=== PATIENT | male | born 2000 | race African-American/Black ===

== ENCOUNTER 2020-01-20 18:24 | Emergency (ER) | payer OTHER, SELFPAY ==
[2020-01-20 18:44] VITALS: BP 114/71; PULSE 74; RESP 16; TEMP 37.2; O2SAT 98; BMI 27.0
--- NOTE | 2020-01-20 23:30 | ED_ITS ---
HPI - General Adult General Chief complaint: General Medical Stated complaint: cough Time Seen by Provider: 01/20/20 18:56 Source: patient Mode of arrival: ambulatory Limitations: no limitations History of Present Illness HPI narrative: 19-year-old male presents with his entire family for COVID-19 testing for a cough. Treatments prior to arrival: none Related Data Allergies Allergy/AdvReac Type Severity Reaction Status Date / Time No Known Allergies Allergy Verified 01/20/20 18:46 [No Known Allergies*] Review of Systems Review of Systems: Constitutional: No Fever, No Chills ENT/Mouth: No Ear Pain, No Hoarseness, No sore throat Eyes: No Eye Pain, No Swelling, No Redness, No Foreign Body Cardiovascular: Positive Chest Pain, No SOB Respiratory: Positive Cough, No Dyspnea Gastrointestinal: No Nausea, No Vomiting, No Diarrhea, No abdominal Pain Genitourinary: No Dysuria, No Hematuria Musculoskeletal: No joint pain, No Myalgias, No Joint Swelling Skin: No Skin lacerations, No rash Neuro: No Weakness, No Numbness, No Paresthesias, No Loss of Consciousness, No Dizziness, No Headache Psych: No Anxiety/Panic, No Depression Heme/Lymph: no easy bruising, no Lymphadenopathy Endocrine: No Polyuria, No Polydipsia Yes all other systems are reviewed and are negative [facility] Past Medical History Medical History (Updated 01/20/20 @ 18:58 by Alyssa George NP) No known health problems Social History Social History Advance Directives: No Advance Directives Information Provided: No Physical Exam Vital Signs: Vital Signs: Last Vital Signs Temp 99.0 F 01/20/20 18:44 Pulse 74 01/20/20 18:44 Resp 16 01/20/20 18:44 BP 114/71 01/20/20 18:44 Pulse Ox 98 01/20/20 18:44 Body Mass Index 27.0 Appearance: Alert. Oriented X3. No acute distress. Eyes: Pupils equal, round and reactive to light. ENT: Pharynx normal. Neck: Normal inspection. Neck supple. CVS: Normal heart rate and rhythm. Pulses normal. Respiratory: No respiratory distress. Breath sounds normal. Abdomen: Soft and nontender. Skin: Skin warm and dry. Normal skin color. Normal skin turgor. Extremities: No lower extremity edema. Neuro: No motor deficit. No sensory deficit. Course Course Course Narrative: 19-year-old male presents with his entire family for COVID-19 because of a cough. Patient verbalized understanding of and agrees to plan of care discharge home. Verbalized understanding of state and Federal guidelines for social isolation regarding COVID-19. Medical Decision Making Differential Diagnosis Differential Diagnosis: URI, viral syndrome, COVID-19 Medical Records Medical records reviewed: Yes I reviewed the patient's medical records. Lab Data Lab results reviewed: Yes I reviewed the patient's lab results. Discharge Plan Discharge Clinical Impression: Viral infection, COVID-19 Upper respiratory infection Qualifiers: URI type: unspecified URI Qualified Code(s): J06.9 - Acute upper respiratory infection, unspecified Patient Disposition: Home, Self-Care Instructions: Viral Syndrome (ED), COVID-19 (Coronavirus Disease 2019) (ED) Additional Instructions: You were evaluated for symptoms consistent with COVID-19. Your COVID-19 test is pending. Please maintain social isolation guidelines for state and Federal regulations. It is your responsibility to maintain these guidelines. Please drink plenty of fluids, alternate Tylenol and Motrin. Thank you for choosing this emergency department for evaluation. Please follow-up with primary care physician as needed. Return to the emergency department for any new, concerning, or worsening symptoms. Interventions: ED Discharge Assessment Last Done: 01/20/20 19:25 Discharge Date/Time: 01/20/20 19:26
== END 2020-01-20 19:26 | disposition home or self-care (01) ==
PROVIDERS: Nurse Practitioner Family; Emergency Provider Internal Medicine; PCP Physician Assistant
DX: J06.9 Acute upper respiratory infection, unspecified (principal); Z20.828 Contact with and (suspected) exposure to other viral communicable diseases; B34.9 Viral infection, unspecified
CPT/HCPCS: 99283; U0003

== ENCOUNTER 2022-05-20 12:07 | Outpatient (REF) | payer OTHER, SELFPAY ==
[2022-05-20 12:25] LABS: MANUAL DIFF FLAG NO
[2022-05-20 13:52] LABS: Basophils Percent Auto 0.8 % (0-2); Eosinophils Absolute Auto 0.3 X10*3/uL (0.0-0.4); Eosinophils Percent Auto 4.9 % (0-4); Hematocrit 43.2 % (42.0-52.0); Hemoglobin 14.3 g/dl (14.0-18.0); Imm Gran Abs Auto 0.01 X10*3/uL (0.00-0.03); Imm Gran Pct Auto 0.2 % (0.0-0.4); Lymphocytes Absolute Auto 2.4 X10*3/uL (1.2-4.9); Lymphocytes Percent Auto 44.2 % (20-40); Mean Corpuscular HGB Conc 33.1 g/dl (31.0-36.0); Mean Corpuscular Hemoglobin 28.8 pg (27.0-33.0); Mean Corpuscular Volume 87.1 fL (80.0-98.0); Monocytes Absolute Auto 0.5 X10*3/uL (0.1-1.2); Monocytes Percent Auto 9.6 % (2-11); Neutrophils Absolute Auto 2.2 x10*3/uL (2.0-8.3); Neutrophils Percent Auto 40.3 % (45-73); Platelet Count 369 X10*3/uL (160-400); Red Blood Count 4.96 X10*6/uL (4.60-5.80); Red Cell Distribution Width 12.3 % (11.0-16.0); White Blood Count 5.3 X10*3/uL (4.8-10.8)
[2022-05-20 14:29] LABS: Alanine Aminotransferase 26 U/L (0-40); Albumin Level 4.3 g/dL (3.5-5.0); Alkaline Phosphatase 88 U/L (39-117); Anion Gap 10 (12-20); Aspartate Amino Transferase 28 U/L (5-37); Bilirubin Total 0.6 mg/dL (0.0-1.0); Blood Urea Nitrogen 14 mg/dL (9-16); Calcium 9.8 mg/dL (8.4-10.2); Carbon Dioxide 27 mmol/L (22-29); Chloride 108 mmol/L (96-108); Estimated Glomerular Filt Rate 59; Glucose Random 77 mg/dL (60-115); Magnesium 2.1 mg/dL (1.6-2.6); Potassium 4.2 mmol/L (3.3-5.1); Sodium 141 mmol/L (135-145); Total Protein 6.9 g/dL (6.5-8.0)
[2022-05-20 15:00] LABS: Folate 8.1 ng/mL (> or = 4.0); TSH reflex Free T4 2.25 uIU/mL (0.32-4.0); Vitamin B12 420 pg/mL (200-900); Vitamin D 25-OH Total 10.1 ng/mL (>30)
== END 2022-05-20 12:08 | disposition home or self-care (01) ==
LOC: HO.LAB 12:07
PROVIDERS: PCP Nurse Practitioner Family; Visit Provider Nurse Practitioner Family
DX: Z00.00 Encounter for general adult medical examination without abnormal findings (principal); M62.838 Other muscle spasm
CPT/HCPCS: 36415; 80053; 82306; 82607; 82746; 83735; 84443; 85025

== ENCOUNTER 2022-06-30 15:38 | Emergency (ER) | payer OTHER, SELFPAY ==
[2022-06-30 15:58] VITALS: BP 108/57; PULSE 78; RESP 18; TEMP 36.2; O2SAT 97; BMI 35.4
--- NOTE | 2022-06-30 15:59 | ED.BACK ---
HPI - Back Pain/Injury General Chief Complaint: Back Pain/Injury Stated Complaint: left lower back pain Time Seen by Provider: 06/30/22 18:16 History of Present Illness HPI Narrative: patient woke today with back pain and muscle spasm in his lower back with no acute injury, he has had minor pain in his back before but today it is worse, it does not radiate there is no numbness weakness or tingling there is no changes to bowel or bladder no incontinence no dysuria no fever no IV drug use Related Data Previous Rx's Medication Instructions Recorded melatonin 5 mg tablet 5 mg PO BEDTIME PRN sleep #30 tabs 11/25/21 lisdexamfetamine 50 mg capsule 50 mg PO QAM #30 caps 05/20/22 (Vyvanse) cholecalciferol (vitamin D3) 50 50 mcg PO DAILY #90 tabs 06/02/22 mcg (2,000 unit) tablet acetaminophen 500 mg tablet 1,000 mg PO QID PRN pain #30 tabs 06/30/22 cyclobenzaprine 5 mg tablet 10 mg PO TID PRN muscle spasm #14 06/30/22 tabs ibuprofen 600 mg tablet 600 mg PO Q6H PRN pain #20 tabs 06/30/22 lidocaine 4 % topical patch 1 patch topical BID PRN pain #30 ea 06/30/22 (AsperFlex (lidocaine)) Allergies Allergy/AdvReac Type Severity Reaction Status Date / Time No Known Allergies Allergy Verified 05/20/22 11:45 [No Known Allergies*] [facility] Past Medical History Source: nursing notes reviewed Medical History Attention deficit hyperactivity disorder (ADHD), combined type COVID-19 vaccine administered No known health problems Surgical History No pertinent past surgical history Family History Family History Mother No problems noted. Father Substance use disorder Other Mental health disorder Social History Social History Household Members: Family Housing: House Alcohol intake: never Patient Tobacco Use Status: Never used Tobacco e-Cigarette/Vaping Use: Never Used Second Hand Smoke Exposure: No Advance Directives: No Advance Directives Information Provided: No service: No Current occupational status: student Cognitive needs: No Hearing needs: No Vision needs: No Physical Exam Vital Signs: Vital Signs: Last Vital Signs Temp 97.1 F 06/30/22 15:58 Pulse 78 06/30/22 15:58 Resp 18 06/30/22 15:58 BP 108/57 L 06/30/22 15:58 Pulse Ox 97 06/30/22 15:58 O2 Del Method Room Air 06/30/22 15:58 BMI result Body Mass Index 35.4 General appearance no acute distress Head is normocephalic atraumatic Neck is supple Respiratory no distress Abdomen soft nontender The back had lower lumbar paraspinal soft tissue tenderness no midline tenderness, pain is reproduced with movement, skin of the back was normal Extremities full range of motion x4 Neuro gait and balance are normal, motor is 5/5 x4 and sensation in extremities intact and symmetrical Course Course Course Narrative: This is a rapid medical exam. Deferred additional HPI, ROS, PE to primary provider. 22 yo male with history of autism, ADHD, anxiety, depression here with complaints of back pain since last evening intermittent for months. Supposed to get physical therapy and PCP aware per patient. Taking motrin for continued symptoms. VSS Patient with reproducible musculoskeletal back pain without neurologic deficit no changes to bowel or bladder is treated with analgesics and advised to follow with his doctor and ambulated easily from the emergency department Medications Administered Discontinued Medications Generic Name Dose Route Start Last Admin Trade Name Cezarq PRN Reason Stop Dose Admin Acetaminophen 975 mg 06/30/22 18:20 06/30/22 18:27 Acetaminophen 325 Mg Tablet PO 06/30/22 18:21 975 mg ONCE ONE Administration Ketorolac Tromethamine 30 mg 06/30/22 18:20 06/30/22 18:26 Ketorolac Tromethamine 30 Mg/Ml Vial IM 06/30/22 18:21 30 mg ONCE ONE Administration Lidocaine 1 patch 06/30/22 18:20 06/30/22 18:27 Lidocaine 4 % Patch Adh..Patch TRANSDERMA 06/30/22 18:21 1 patch ONCE ONE Administration Protocol Discharge Plan Discharge Clinical Impression: Back pain Patient Disposition: Home, Self-Care Additional Instructions: most back pain like yours gets better on its own in a reasonable time frame Follow with primary doctor for further evaluation if needed Return any time for weakness incontinence fever severe pain any worse condition or any concerns Prescriptions: New acetaminophen 500 mg tablet 1,000 mg PO QID PRN (Reason: pain) Qty: 30 0RF lidocaine [AsperFlex (lidocaine)] 4 % adhesive patch,medicated 1 patch topical BID PRN (Reason: pain) Qty: 30 0RF ibuprofen 600 mg tablet 600 mg PO Q6H PRN (Reason: pain) Qty: 20 0RF cyclobenzaprine 5 mg tablet 10 mg PO TID PRN (Reason: muscle spasm) Qty: 14 0RF No Action melatonin 5 mg tablet 5 mg PO BEDTIME PRN (Reason: sleep) Qty: 30 2RF cholecalciferol (vitamin D3) 50 mcg (2,000 unit) tablet 50 mcg PO DAILY Qty: 90 0RF Vyvanse 50 mg capsule 50 mg PO QAM Qty: 30 0RF Stand Alone Forms: Work/School Release Interventions: ED Discharge Assessment Last Done: 06/30/22 18:57 Discharge Date/Time: 06/30/22 18:58
[2022-06-30] MEDS: Ketorolac Tromethamine 30 MG/ML VIAL IM (18:26)
[2022-06-30] MEDS: Acetaminophen 325 MG TABLET 975 MG PO (18:27)
[2022-06-30] MEDS: Lidocaine 4 % Patch ADH..PATCH 1 PATCH TRANSDERMA (18:27)
== END 2022-06-30 18:58 | disposition home or self-care (01) ==
PROVIDERS: Emergency Provider Emergency Medicine Emergency Medical Services; PCP Nurse Practitioner Family
DX: M54.50 Low back pain, unspecified (principal); Z79.899 Other long term (current) drug therapy
CPT/HCPCS: 96372; 99283; 99284; J1885

== ENCOUNTER 2022-08-24 09:33 | Outpatient (AMB) | payer OTHER, SELFPAY ==
--- NOTE | 2022-08-24 09:37 | A.OFFPC_ITS ---
Vital Signs 08/24/22 09:38 Height 6 ft 4 in Weight 285 lb BMI 34.7 BP 128/78 Blood Pressure Location Lt brachial Position Sitting Pulse 82 Pulse Source Pulse Oximeter Pulse Oximetry (%) 98 Oxygen Delivery Method Room Air Intake Visit Reasons: f/u ADHD Allergies No Known Allergies [No Known Allergies*] Allergy (Verified 08/24/22 09:52) Medication List - Last Reconciled 08/24/22 by DAY Ley acetaminophen 1,000 mg (2 x 500 mg) PO QID PRN cholecalciferol (vitamin D3) 50 mcg PO DAILY cyclobenzaprine 10 mg (2 x 5 mg) PO TID PRN ibuprofen 600 mg PO Q6H PRN lidocaine 4% (AsperFlex (lidocaine)) 1 patch topical BID PRN lisdexamfetamine (Vyvanse) 50 mg PO QAM melatonin 5 mg PO BEDTIME PRN Tobacco use date assessed: 08/19/22 Dental Screening Dental Screen Date: 08/24/22 Did you have a dental visit in the last 12 months?: Yes Did you have a dental problem in the last 6 months where you did not have access to dental care?: No Was dental information given to patient?: Patient has dentist HPI f/u ADHD HPI Details Patient is a 22-year-old male who presents today to follow-up on ADHD.? Medical history significant for obesity, insomnia, depression, anxiety, and autistic disorder as well as ADHD.? Patient reports taking Vyvanse 50 mg in the morning when he goes to work, he does not take this medication when he home or on weekends.? Patient denies changes in appetite.? Mood is stable.? Also, patient reports intermittent low back pain with activity for about 4 month now, he denies injury, pain does not radiate. No changes in bowel/bladder, no numbness or tingling.? He takes ibuprofen or Tylenol as needed with some relief.? Patient has a referral for physical therapy, although he was not seen yet, will follow-up on this referral.? Patient denies shortness of breath or chest pain.? Patient is accompanied by his mother Lianne. ? ? [facility] Medical History Attention deficit hyperactivity disorder (ADHD), combined type COVID-19 vaccine administered No known health problems Surgical History No pertinent past surgical history Family History Mother No problems noted. Father Substance use disorder Other Mental health disorder Social History Household Members: Family Housing: House Alcohol intake: never Patient Tobacco Use Status: Never used Tobacco e-Cigarette/Vaping Use: Never Used Second Hand Smoke Exposure: No service: No Current occupational status: student Cognitive needs: No Hearing needs: No Vision needs: No Questionnaire PHQ-9 Over the last 2 weeks, how often have you been bothered by any of the following problems? 1. Little interest or pleasure in doing things: not at all 2. Feeling down, depressed, or hopeless: not at all 3. Trouble falling or staying asleep, or sleeping too much: not at all 4. Feeling tired or having little energy: not at all 5. Poor appetite or overeating: not at all 6. Feeling bad about yourself - or that you are a failure or have let yourself or your family down: not at all 7. Trouble concentrating on things, such as reading the newspaper or watching television: not at all 8. Moving or speaking so slowly that other people could have noticed. Or the opposite - being so fidgety or restless that you have been moving around a lot more than usual: not at all 9. Thoughts that you would be better off or of hurting yourself in some way: not at all Total score: 0 Depression Screening Interpretation: Negative 71211 - PHQ-9 Billing: Yes Source: Developed by Drs. Anthony Osuna, Penelope Edwards, John Aden and colleagues, with an educational gary from [employer]. Thrive Questionnaire Date Thrive assessed: 08/24/22 I am a: Patient What is your living situation today?: I have a steady place to live Within the past 12 months, did the food you bought not last and you didn't have the money to get more?: Never true Within the past 12 months, did you worry whether your food would run out before you got money to buy more?: Never true Do you have trouble paying for medicines?: No Do you have trouble getting transportation to medical appointments?: No Do you have trouble paying your heating and electricity bill?: No Do you have trouble taking care of your child, family member or friend?: No Do you have trouble with day-to-day activities such as bathing, preparing meals, shopping, managing finances, etc.?: No Are you currently unemployed and looking for a job?: No Are you interested in more education?: No Currently or been in a relationship where the following occur: no concerns reported AUDIT C Alcohol Use Questionnaire (AUDIT-C) 1. How often do you have a drink containing alcohol?: Never Total Score: 0 Score Reviewed/Action Taken: No MIR-7 AMB Questionnaire MIR-7 Date MIR - 7 assessed: 05/20/22 Source: Developed by Drs. Anthony Osuna, Penelope Edwards, John Aden and colleagues, with an educational gary from [employer]. Review of Systems Const Denies body aches, Denies chills, Denies fever(s) and Denies headache(s) Eyes Denies change in vision ENT Denies dizziness, Denies otalgia, Denies headache(s), Denies nasal discharge, Denies sinus pain and Denies sore throat Card Denies chest pain, Denies edema, Denies lightheadedness and Denies dyspnea Resp Denies cough and Denies dyspnea GI Denies constipation, Denies diarrhea, Denies nausea and Denies vomiting Denies dysuria Musc Reports as per HPI, Denies myalgias, Denies arthralgias, Denies joint swelling, Denies numbness and Denies tingling Skin/Breast Denies lesions and Denies rash Neuro Denies dizziness, Denies headache(s), Denies numbness and Denies tingling Physical exam (Primary Care) Vital Signs: Last Vital Signs Pulse 82 08/24/22 09:38 BP 128/78 08/24/22 09:38 Pulse Ox 98 08/24/22 09:38 Oxygen Delivery Method Room Air 08/24/22 09:38 BMI result Body Mass Index 34.7 Tobacco/Smoking Status: Tobacco use Status Tobacco use date assessed 08/19/22 08/24/22 09:37 Patient Tobacco Use Status Never used Tobacco 08/24/22 09:37 e-Cigarette/Vaping Use Never Used 08/24/22 09:37 PHQ-9: PHQ-9 Score PHQ-9: Total score 0 08/24/22 09:42 Depression Screening Interpretation: Negative Thrive Assessment: Date of Thrive Assessment Date Thrive assessed 08/24/22 08/24/22 09:42 Currently or been in a relationship where the following occur: no concerns reported Const General: cooperative and no acute distress Orientation/consciousness: patient oriented x3 HENMT Head: Yes normocephalic and Yes atraumatic Face and sinus: Yes sinuses nontender Mouth: oropharynx normal and moist mucous membranes Throat: Yes posterior oropharynx normal Eyes General: appearance normal, both eyes and all related structures Pupils: Equal, round and reactive pupils present EOM: EOMs intact bilaterally Neck Neck: Yes normal visual inspection, Yes full ROM and Yes no lymphadenopathy Thyroid: Thyroid normal Resp Effort & Inspection: normal respiratory effort and able to speak in complete sentences Auscultation: clear to auscultation bilaterally, no crackles, no rales, no rhonchi and no wheezes Cardio Rate: regular rate Rhythm: regular rhythm Heart sounds: S1 normal heart sound present, S2 normal heart sound present and no murmurs GI Palpation (GI): Soft to palpation, not firm, nontender, no guarding, not rigid and no hepatosplenomegaly Auscultation: normal bowel sounds Back/Spine/Pelvis Thoracic/Lumbar Spine: thoraco-lumbar ROM normal, No paraspinal muscle tenderness, No thoracic spinal tenderness and lumbar spinal tenderness (Mild) Skin General skin exam: no rashes or lesions noted Neuro General: patient oriented x3 Cranial nerves: Yes Equal, round and reactive pupils present Gait exam (Neuro): Normal gait present Extrem General: Yes full ROM and No edema Assessment and Plan Assessment & Plan (1) Insomnia: Code(s): G47.00 - Insomnia, unspecified Plan: Reinforced sleep hygiene Melatonin 5 mg at bedtime p.r.n. (2) Autistic disorder: Code(s): F84.0 - Autistic disorder Plan: Patient has high functioning autistic disorder (3) Attention deficit hyperactivity disorder (ADHD), combined type: Code(s): F90.2 - Attention-deficit hyperactivity disorder, combined type Plan: Vyvanse 50 mg every morning-educated about possible adverse reactions and when to notify provider Patient reports that he takes this medication only when he is at work, he does not take this medication when he is home or on weekends (4) Obesity (BMI 30-39.9): Code(s): E66.9 - Obesity, unspecified Plan: Healthy food choices and exercise as tolerated (5) Low back pain: Code(s): M54.50 - Low back pain, unspecified Plan: Suspect musculoskeletal in origin. Patient can continue [id number] Tylenol 1000 mg every 4 hours as needed and cyclobenzaprine t.i.d. p.r.n.. Encouraged heat/cold packs p.r.n.. Will follow-up on physical therapy referral. Signs and symptoms reviewed when to notify provider or go to the emergency department. Patient agreed with the plan. Plan Keep appointment with PCP as scheduled or follow-up sooner as needed Medications: Refilled lisdexamfetamine (Vyvanse) 50 mg PO QAM 30 caps 0RF F90.2 - Attention-deficit hyperactivity disorder, combined type Coding Level of Care Code Est Pt Level 4 (41982) Diagnoses Insomnia G47.00 Autistic disorder F84.0 Attention deficit hyperactivity disorder (ADHD), combined type F90.2 Obesity (BMI 30-39.9) E66.9 Low back pain M54.50
[2022-08-24 09:38] VITALS: BP 128/78; PULSE 82; O2SAT 98; BMI 34.7
== END 2022-08-24 10:07 | disposition home or self-care (01) ==
PROVIDERS: PCP Nurse Practitioner Family; Visit Provider Nurse Practitioner Family
DX: F90.2 Attention-deficit hyperactivity disorder, combined type (principal); F84.0 Autistic disorder; E66.9 Obesity, unspecified; Z68.34 Body mass index [BMI] 34.0-34.9, adult; G47.00 Insomnia, unspecified; M54.50 Low back pain, unspecified
CPT/HCPCS: 99214

== ENCOUNTER 2022-11-04 16:25 | Outpatient (AMB) | payer OTHER, SELFPAY ==
[2022-11-04 16:27] VITALS: BP 112/80; PULSE 74; O2SAT 97; BMI 35.5
--- NOTE | 2022-11-04 16:27 | A.OFFPC_ITS ---
Vital Signs 11/04/22 16:27 Height 6 ft 4 in Weight 292 lb BMI 35.5 BP 112/80 Blood Pressure Location Lt brachial Position Sitting Pulse 74 Pulse Source Pulse Oximeter Temp Source Skin Pulse Oximetry (%) 97 Oxygen Delivery Method Room Air Intake Visit Reasons: PE Intake Note: Patient is here today for a physical. 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 Allergies No Known Allergies [No Known Allergies*] Allergy (Verified 11/04/22 16:37) Medication List - Last Reconciled 11/04/22 by DAY Ley acetaminophen 1,000 mg (2 x 500 mg) PO QID PRN cholecalciferol (vitamin D3) 50 mcg PO DAILY ibuprofen 600 mg PO Q6H PRN lidocaine 4% (AsperFlex (lidocaine)) 1 patch topical BID PRN lisdexamfetamine (Vyvanse) 50 mg PO QAM melatonin 5 mg PO BEDTIME PRN Tobacco use date assessed: 11/04/22 Dental Screening Dental Screen Date: 11/04/22 Did you have a dental visit in the last 12 months?: Yes Did you have a dental problem in the last 6 months where you did not have access to dental care?: No Was dental information given to patient?: Patient has dentist HPI PE HPI Details Patient is a 22-year-old male who presents today for physical exam.? Medical history significant for obesity, insomnia, depression, anxiety, low back pain - has a referral for physical therapy, although he was not seen yet, will follow-up on this referral, and autistic disorder as well as ADHD.? Patient reports taking Vyvanse 50 mg in the morning when he goes to work, he does not take this medication when he home or on weekends.? Patient denies changes in appetite.? Mood is stable. Patient .? Patient denies shortness of breath or chest pain.? Patient reports right elbow pain with range of motion for the past couple months, he reports repetitive movements at work. Patient is accompanied by his mother Lianne. Patient was encouraged to complete his blood work. ? ? [facility], LAT[facility] Medical History COVID-19 vaccine administered Attention deficit hyperactivity disorder (ADHD), combined type No known health problems Surgical History No pertinent past surgical history Family History Mother No problems noted. Father Substance use disorder Other Mental health disorder Social History Household Members: Family Housing: House Alcohol intake: never Patient Tobacco Use Status: Never used Tobacco e-Cigarette/Vaping Use: Never Used Second Hand Smoke Exposure: No service: No Current occupational status: student Cognitive needs: No Hearing needs: No Vision needs: No Questionnaire PHQ-9 Over the last 2 weeks, how often have you been bothered by any of the following problems? 1. Little interest or pleasure in doing things: not at all 2. Feeling down, depressed, or hopeless: not at all 3. Trouble falling or staying asleep, or sleeping too much: not at all 4. Feeling tired or having little energy: not at all 5. Poor appetite or overeating: not at all 6. Feeling bad about yourself - or that you are a failure or have let yourself or your family down: not at all 7. Trouble concentrating on things, such as reading the newspaper or watching television: not at all 8. Moving or speaking so slowly that other people could have noticed. Or the opposite - being so fidgety or restless that you have been moving around a lot more than usual: not at all 9. Thoughts that you would be better off or of hurting yourself in some way: not at all Total score: 0 Depression Screening Interpretation: Negative 30926 - PHQ-9 Billing: Yes Source: Developed by Drs. Anthony Osuna, Penelope Edwards, John Aden and colleagues, with an educational gary from [employer]. Thrive Questionnaire Date Thrive assessed: 08/24/22 AUDIT C Alcohol Use Questionnaire (AUDIT-C) 1. How often do you have a drink containing alcohol?: Never Total Score: 0 Score Reviewed/Action Taken: No MIR-7 AMB Questionnaire MIR-7 Date MIR - 7 assessed: 11/04/22 Feeling nervous, anxious, or on edge: 0 = Not at all Not being able to stop or control worryin = Not at all Worrying too much about different things: 0 = Not at all Trouble relaxin = Not at all Being so restless that it is hard to sit still: 0 = Not at all Becoming easily annoyed or irritable: 0 = Not at all Feeling afraid as if something awful might happen: 0 = Not at all Total MIR-7 score (0-4 normal; 5-9 mild; 10-14 moderate; 15-21 severe): 0 Source: Developed by Drs. Anthony Osuna, Penelope Edwards, John Aden and colleagues, with an educational gary from [employer]. MIR-7 Assessment Billing MIR-7 Assessment Tool: MIR-7 Assessment 11458 Review of Systems Const Denies body aches, Denies chills, Denies fever(s) and Denies headache(s) Eyes Denies change in vision ENT Denies dizziness, Denies otalgia, Denies headache(s), Denies nasal discharge, Denies sinus pain and Denies sore throat Card Denies chest pain, Denies edema, Denies lightheadedness and Denies dyspnea Resp Denies cough and Denies dyspnea GI Denies constipation, Denies diarrhea, Denies nausea and Denies vomiting Denies dysuria Musc Reports as per HPI, Denies myalgias, Reports arthralgias, Denies joint swelling, Denies numbness and Denies tingling Skin/Breast Denies lesions and Denies rash Neuro Denies dizziness, Denies headache(s), Denies numbness and Denies tingling Physical exam (Primary Care) Vital Signs: Last Vital Signs Pulse 74 11/04/22 16:27 BP 112/80 11/04/22 16:27 Pulse Ox 97 11/04/22 16:27 Oxygen Delivery Method Room Air 11/04/22 16:27 BMI result Body Mass Index 35.5 Tobacco/Smoking Status: Tobacco use Status Tobacco use date assessed 11/04/22 11/04/22 16:34 Patient Tobacco Use Status Never used Tobacco 11/04/22 16:34 e-Cigarette/Vaping Use Never Used 11/04/22 16:34 PHQ-9: PHQ-9 Score PHQ-9: Total score 0 11/04/22 16:49 Depression Screening Interpretation: Negative Thrive Assessment: Date of Thrive Assessment Date Thrive assessed 08/24/22 11/04/22 16:34 Const General: cooperative and no acute distress Orientation/consciousness: patient oriented x3 HENMT Head: Yes normocephalic and Yes atraumatic Ears: TM's normal bilaterally Face and sinus: Yes sinuses nontender Mouth: oropharynx normal and moist mucous membranes Throat: Yes posterior oropharynx normal Eyes General: appearance normal, both eyes and all related structures Pupils: Equal, round and reactive pupils present EOM: EOMs intact bilaterally Neck Neck: Yes normal visual inspection, Yes full ROM and Yes no lymphadenopathy Thyroid: Thyroid normal Resp Effort & Inspection: normal respiratory effort and able to speak in complete sentences Auscultation: clear to auscultation bilaterally, no crackles, no rales, no rhonchi and no wheezes Cardio Rate: regular rate Rhythm: regular rhythm Heart sounds: S1 normal heart sound present, S2 normal heart sound present and no murmurs GI Palpation (GI): Soft to palpation, not firm, nontender, no guarding, not rigid and no hepatosplenomegaly Auscultation: normal bowel sounds Back/Spine/Pelvis Thoracic/Lumbar Spine: thoraco-lumbar ROM normal, No paraspinal muscle tenderness, No thoracic spinal tenderness and lumbar spinal tenderness (Mild) Skin General skin exam: no rashes or lesions noted Neuro General: patient oriented x3 Cranial nerves: Yes Equal, round and reactive pupils present Gait exam (Neuro): Normal gait present Extrem General: Yes full ROM and No edema Right upper extremity: elbow/forearm Details: normal to inspection and abnormal ROM (Mild pain with range of motion); no tenderness, no swelling, no unusual warmth and no crepitus Immunizations Boostrix Tdap 2.5 Lf unit-8 mcg-5 Lf/0.5 mL intramuscular syringe Performing Provider: DAY Ley Performing Location: [facility] Administered by: LAKISHA Colon on 11/04/22 16:50 Dose Route Admin Location Dispensed Lot Number Expiration Date NDC Title Insurance Examiner 0.5 mL IM Left Deltoid 0.5 mL [id number] 01/11/25 [id number] VIS Given Date VIS Provided VIS Publication Date 11/04/22 Single Vaccine 20 Eligibility Eligibility Date Funding Source Not [facility] Eligible 11/04/22 Private Assessment and Plan Assessment & Plan (1) Insomnia: Code(s): G47.00 - Insomnia, unspecified Plan: Reinforced sleep hygiene Melatonin 5 mg at bedtime p.r.n. (2) Autistic disorder: Code(s): F84.0 - Autistic disorder Plan: Patient has high functioning autistic disorder (3) Attention deficit hyperactivity disorder (ADHD), combined type: Code(s): F90.2 - Attention-deficit hyperactivity disorder, combined type Plan: Vyvanse 50 mg every morning-educated about possible adverse reactions and when to notify provider Patient reports that he takes this medication only when he is at work, he does not take this medication when he is home or on weekends (4) Obesity (BMI 30-39.9): Code(s): E66.9 - Obesity, unspecified Plan: Healthy food choices and exercise as tolerated (5) Low back pain: Code(s): M54.50 - Low back pain, unspecified Plan: Suspect musculoskeletal in origin. Patient can continue pqvw-voj-gadyeps Tylenol 1000 mg every 6 hours as needed. Start cyclobenzaprine 5 mg b.i.d. p.r.n.-educated about drowsiness. Encouraged heat/cold packs p.r.n.. Will follow-up on physical therapy referral. Signs and symptoms reviewed when to notify provider or go to the emergency department. Patient agreed with the plan. (6) Right elbow pain: Code(s): M25.521 - Pain in right elbow Plan: Will refer to OT Same as above (7) Adult general medical exam: Code(s): Z00.00 - Encounter for general adult medical examination without abnormal findings Orders: Orders TDaP Immunization 11/04/22 Z23 - Encounter for immunization OT Evaluation and Treatment 11/04/22 M25.521 - Pain in right elbow Medications: New 2 cyclobenzaprine 5 mg PO BID PRN 14 tabs 0RF muscle spasm M54.50 - Low back pain, unspecified Changed From acetaminophen 1,000 mg (2 x 500 mg) PO QID PRN 30 tabs 0RF pain M25.521 - Pain in right elbow, M54.50 - Low back pain, unspecified To acetaminophen 1,000 mg (2 x 500 mg) PO Q6H PRN 60 tabs 0RF pain M25.521 - Pain in right elbow, M54.50 - Low back pain, unspecified Coding Level of Care Code Est Pt Prev Care [id number]) Diagnoses Insomnia G47.00 Autistic disorder F84.0 Attention deficit hyperactivity disorder (ADHD), combined type F90.2 Obesity (BMI 30-39.9) E66.9 Low back pain M54.50 Right elbow pain M25.521 Adult general medical exam Z00.00 Additional Codes MIR-7 Assessment Billing - MIR-7 Assessment Tool: MIR-7 Assessment [id number] ([id number])
== END 2022-11-04 16:58 | disposition home or self-care (01) ==
PROVIDERS: Visit Provider Nurse Practitioner Family
DX: Z23 Encounter for immunization (principal)
CPT/HCPCS: 90471; 90715; 99395

== ENCOUNTER 2023-09-23 18:03 | Emergency (ER) | payer OTHER, SELFPAY ==
--- NOTE | ~2023-09-23 | XR_ITS ---
EXAMINATION: XR ELBOW, RIGHT XR HAND WRIST RIGHT CLINICAL INFORMATION: Pain. Injury. COMPARISON: None available. TECHNIQUE: AP, lateral, and oblique views of the right elbow. 4 views of the right hand/wrist FINDINGS: Right elbow: Right elbow joint effusion. Nondisplaced intra-articular fracture is evident at the radial head. No additional fractures. Bone mineralization is normal. Right hand: No fracture or malalignment. Bone mineralization is normal. Soft tissues are unremarkable. Joint spaces are well-preserved. No erosions. XR/XR elbow RT min 3V IMPRESSION: 1. Nondisplaced intra-articular radial head fracture with associated elbow joint effusion. 2. No acute osseous findings at the right hand.
--- NOTE | ~2023-09-23 | XR_ITS ---
EXAMINATION: XR SHOULDER, RIGHT XR SCAPULA, LEFT CLINICAL INFORMATION: Fall. Pain. COMPARISON: None TECHNIQUE: AP external rotation, Grashey, scapular Y, and axillary views of the right shoulder. 2 views of the left scapula. FINDINGS: Right shoulder: The bones and soft tissues are normal. No fracture. Glenohumeral and acromioclavicular alignment is anatomic with normal joint space. No abnormal soft tissue calcifications. Left scapula: No fracture or malalignment. Osseous structures are unremarkable. Acromioclavicular and glenohumeral joints are unremarkable. XR/XR shoulder RT min 2V IMPRESSION: No acute osseous abnormalities in the right shoulder and left scapula.
--- NOTE | ~2023-09-23 | XR_ITS ---
EXAMINATION: XR KNEE, LEFT CLINICAL INFORMATION: Injury. COMPARISON: None available. TECHNIQUE: AP and lateral views of the left knee. FINDINGS: Small joint effusion. Alignment is anatomic. Joint spaces are maintained. No abnormal soft tissue calcification. XR/XR knee LT 2V IMPRESSION: Small joint effusion. No acute fracture or dislocation.
--- NOTE | ~2023-09-23 | XR_ITS ---
EXAMINATION: XR SHOULDER, RIGHT XR SCAPULA, LEFT CLINICAL INFORMATION: Fall. Pain. COMPARISON: None TECHNIQUE: AP external rotation, Grashey, scapular Y, and axillary views of the right shoulder. 2 views of the left scapula. FINDINGS: Right shoulder: The bones and soft tissues are normal. No fracture. Glenohumeral and acromioclavicular alignment is anatomic with normal joint space. No abnormal soft tissue calcifications. Left scapula: No fracture or malalignment. Osseous structures are unremarkable. Acromioclavicular and glenohumeral joints are unremarkable. XR/XR scapula LT IMPRESSION: No acute osseous abnormalities in the right shoulder and left scapula.
--- NOTE | ~2023-09-23 | XR_ITS ---
EXAMINATION: XR ELBOW, RIGHT XR HAND WRIST RIGHT CLINICAL INFORMATION: Pain. Injury. COMPARISON: None available. TECHNIQUE: AP, lateral, and oblique views of the right elbow. 4 views of the right hand/wrist FINDINGS: Right elbow: Right elbow joint effusion. Nondisplaced intra-articular fracture is evident at the radial head. No additional fractures. Bone mineralization is normal. Right hand: No fracture or malalignment. Bone mineralization is normal. Soft tissues are unremarkable. Joint spaces are well-preserved. No erosions. XR/XR hand wrist RT IMPRESSION: 1. Nondisplaced intra-articular radial head fracture with associated elbow joint effusion. 2. No acute osseous findings at the right hand.
[2023-09-23 18:24] VITALS: BP 129/78; PULSE 86; RESP 18; TEMP 36.4; O2SAT 98; BMI 39.5
--- NOTE | 2023-09-23 18:49 | ED_ITS ---
HPI - General Adult General Chief complaint: Fall Stated complaint: right arm mult. abrasions, swelling Time Seen by Provider: 09/23/23 18:57 Source: patient Mode of arrival: ambulatory Limitations: no limitations History of Present Illness ED Provider: Celi Clarek APRN HPI narrative: 23-year-old male previously healthy, right-hand dominant here with complaints after fall off of a skateboard. Patient reports he caught himself with his right upper extremity and then rolled onto the left side. Denies hitting his head or loss of consciousness. He reports pain in his right wrist, right hand, right shoulder, left shoulder, right elbow, left knee. Tetanus is up-to-date. No associated weakness, numbness or tingling of the extremities. No chest pain, abdominal pain, back pain, neck pain or headache. Related Data Previous Rx's ?Medication ?Instructions ?Recorded melatonin 5 mg tablet 5 mg PO BEDTIME PRN sleep #30 tabs 11/25/21 ibuprofen 600 mg tablet 600 mg PO Q6H PRN pain #20 tabs 06/30/22 lidocaine 4 % topical patch 1 patch topical BID PRN pain #30 ea 06/30/22 (AsperFlex (lidocaine)) acetaminophen 500 mg tablet 1,000 mg (2 x 500 mg) PO Q6H PRN 11/04/22 pain #60 tabs cyclobenzaprine 5 mg tablet 5 mg PO BID PRN muscle spasm #14 11/04/22 tabs cholecalciferol (vitamin D3) 50 50 mcg PO DAILY #90 tabs 12/01/22 mcg (2,000 unit) tablet lisdexamfetamine 50 mg capsule 50 mg PO QAM #30 caps 01/18/23 (Vyvanse) Allergies Allergy/AdvReac Type Severity Reaction Status Date / Time No Known Allergies Allergy Verified 09/23/23 18:33 [No Known Allergies*] Review of Systems 2 Review of Systems: Yes all other systems are reviewed and are negative Constitutional: Constitutional: Reports no additional constitutional complaints, Denies body ache(s), Denies chills, Denies fever(s), Denies headache(s) and Denies weakness Eyes: Eyes: Reports no additional eye complaints and Denies change in vision ENT: Reports system reviewed and no additional complaints, except as documented, Denies dizziness, Denies headache(s), Denies nasal congestion, Denies nasal discharge and Denies neck pain Cardiovascular: Cardiovascular: Reports no additional cardiovascular complaints, Denies chest pain, Denies leg edema and Denies dyspnea Respiratory: Respiratory: Reports no additional respiratory complaints, Denies cough and Denies dyspnea Gastrointestinal: Gastrointestinal: Reports no additional gastrointestinal complaints, Denies abdominal pain, Denies diarrhea, Denies nausea and Denies vomiting Genitourinary: Genitourinary: Denies urinary incontinence Musculoskeletal: Musculoskeletal: Reports no additional musculoskeletal complaints, Denies back pain, Reports arthralgias, Reports joint swelling, Denies neck pain, Denies numbness and Denies tingling Integumentary/Breasts: Skin/Breast: Reports system reviewed and no additional complaints, except as docu, Denies rash and Reports wounds Neurologic: Reports system reviewed and no additional complaints, except as documented, Denies Abnormal speech present, Denies dizziness, Denies headache(s), Denies numbness, Denies tingling and Denies weakness PMFSH Past Medical History Attestation statement: The following information was validated with the patient. Source: old records reviewed and nursing notes reviewed Medical History COVID-19 vaccine administered Attention deficit hyperactivity disorder (ADHD), combined type No known health problems Surgical History No pertinent past surgical history Family History Family History Mother No problems noted. Father Substance use disorder Other Mental health disorder Social History Social History Household Members: Family Housing: House Alcohol intake: never Patient Tobacco Use Status: Never used Tobacco e-Cigarette/Vaping Use: Never Used Second Hand Smoke Exposure: No Advance Directives: No Advance Directives Information Provided: No Do you have a plan to hurt others: No Plan service: No Current occupational status: student Cognitive needs: No Hearing needs: No Vision needs: No Physical Exam ED Vital Signs: Vital Signs - 24 hr 09/23/23 18:24 09/23/23 20:51 Temperature 97.5 F 98 F Pulse Rate 86 84 Respiratory Rate 18 20 Blood Pressure 129/78 130/82 Pulse Oximetry 98 98 Oxygen Delivery Method Room Air Room Air BMI result Body Mass Index 39.5 Const General: cooperative, healthy appearing, comfortable and no acute distress Orientation/consciousness: patient oriented x3 Limitations: no limitations HENMT Head: Yes normal to inspection, No Rosales's sign and No raccoon eyes Ears: hearing grossly normal bilaterally and TM's normal bilaterally General nose exam: Normal external nose present Face and sinus: Yes normal facial exam Mouth: Normal oral and palatal mucosa present Throat: Yes posterior oropharynx normal Eyes General: appearance normal, both eyes and all related structures Pupils: Equal, round and reactive pupils present Neck Other: No cervical midline tenderness, step offs or deformities Neck: Yes normal visual inspection, Yes full ROM and Yes no lymphadenopathy Chest Chest palpation & inspection: normal inspection of the chest Resp Effort & Inspection: normal respiratory effort Auscultation: clear to auscultation bilaterally Cardio Rate: regular rate Rhythm: regular rhythm Peripheral pulses: Peripheral pulses 2+ throughout GI Inspection: Yes normal to inspection Palpation (GI): Soft to palpation and nontender Auscultation: normal bowel sounds Back/Spine/Pelvis Thoracic/Lumbar Spine: thoracic and lumbar spine normal to inspection Skin General skin exam: no rashes or lesions noted Neuro General: patient oriented x3, moves all extremities, no focal motor deficits and normal sensation to monofilament Cranial nerves: Yes CN's II-XII intact bilaterally, Yes Equal, round and reactive pupils present, Yes Bilaterally intact EOM present, Yes Nystagmus not present and Yes Normal facial strength present Cognition (Neuro): normal cognition Speech: No Abnormal speech present Gait exam (Neuro): Normal gait present Motor exam (neuro): 5/5 motor strength present throughout Sensory Exam: Normal double simultaneous stimulation for sensation Extrem Other: FROM of R shoulder, right elbow, left shoulder, left knee Limited ROM of right wrist/right thenar/base of 1st digit. General: Yes normal to inspection Shoulder/upper arm images: 2 1. + abrasion with mild tenderness on palpation. FROM 2. + abrasion with mild tenderness on palpation. FROM of joint. Elbow/forearm/wrist images: 2 1. +abrasion Hand/finger images: 2 1. +abrasion/swelling 2. +skin avulsion, abrasions Knee images: 2 1. +abrasion, mild TTP. FROM Course Course Course Narrative: This is a rapid medical exam. Deferred additional HPI, ROS, PE to primary provider. Fell of skateboard, with right wrist/elbow pain/abrasions, left knee/left shoulder abrasions. No head strike or LOC. Will obtain x-rays iCndy ALEXANDER Reevaluation(s) Reevaluation #1: 2100-Sign out to Asif VILLEGAS pending imaging results. Reevaluation #2: 10:00 p.m. x-ray results returned and reviewed with the patient and his mother. Positive right radial head fracture. Patient will be placed in sling. Of note, mom reports that patient has had elevated LFTs in the past and therefore was advised not take acetaminophen. He will continue ibuprofen as directed. All abrasions have been cleaned and bandaged. Reviewed all discharge instructions. No further questions at this time. Medications Administered Discontinued Medications Generic Name Dose Route Start Last Admin Trade Name Freq PRN Reason Stop Dose Admin Bacitracin 5 appl 09/23/23 20:37 09/23/23 21:43 Bacitracin Oint 0.9 Gm Packet TOPICAL 09/23/23 20:38 5 appl ONCE ONE Administration Protocol Medical Decision Making Medical Decision Making MDM Narrative: 23-year-old male previously healthy, right-hand dominant here with complaints after fall off of a skateboard.? Patient reports he caught himself with his right upper extremity and then rolled onto the left side.? Denies hitting his head or loss of consciousness.? He reports pain in his right wrist, right hand, right shoulder, left shoulder, right elbow, left knee.? Tetanus is up-to-date.? No associated weakness, numbness or tingling of the extremities.? No chest pain, abdominal pain, back pain, neck pain or headache. Multple abrasions FROM of R shoulder, right elbow, left shoulder, left knee Limited ROM of right wrist/right thenar/base of 1st digit. Will check x-rays Differential Diagnosis Differential Diagnoses: The differential diagnosis associated with the presentation includes abrasions, fracture, sprain, strain, contusion Low suspicion for complex fx, dislocation or vascular injury Admission/Observation Consideration of admission/observation: Escalation of care including admission/observation considered Low suspicion for complex fx, dislocation or vascular injury requiring advanced imaging, urgent ortho consult and or admission Independent Interpretation I performed an independent interpretation of an: Plain X-Ray Radiology Impression Discussion of test interpretation with radiology: I have reviewed the radiologist's reading. Radiologist Impression: [address] [address] XRay Report Signed Patient: Leonard Hdz MR#: [id number] : 2000 Acct:[id number] Age/Sex: 23 / M ADM Date: 09/23/23 Loc: HO.ED Attending Dr: Ordering Physician: Kolby Yañez MD Date of Service: 09/23/23 Procedure(s): XR elbow RT min 3V Accession Number(s): [id number] cc: [facility]; Kolby Yañez MD~ EXAMINATION: XR ELBOW, RIGHT XR HAND WRIST RIGHT CLINICAL INFORMATION: Pain. Injury. COMPARISON: None available. TECHNIQUE: AP, lateral, and oblique views of the right elbow. 4 views of the right hand/wrist FINDINGS: Right elbow: Right elbow joint effusion. Nondisplaced intra-articular fracture is evident at the radial head. No additional fractures. Bone mineralization is normal. Right hand: No fracture or malalignment. Bone mineralization is normal. Soft tissues are unremarkable. Joint spaces are well-preserved. No erosions. XR/XR elbow RT min 3V IMPRESSION: 1. Nondisplaced intra-articular radial head fracture with associated elbow joint effusion. 2. No acute osseous findings at the right hand. Dictated By: Andrew Polo MD Signed By: <Electronically signed by Andrew Polo MD in [place]> 09/23/232121 DD/ 39 TD/TT: Enterprise Solutions Architect: THUAN [address] [address] XRay Report Signed Patient: Leonard Hdz MR#: [id number] : 2000 Acct:[id number] Age/Sex: 23 / M ADM Date: 09/23/23 Loc: HO.ED Attending Dr: Ordering Physician: Kolby Yañez MD Date of Service: 09/23/23 Procedure(s): XR knee LT 2V Accession Number(s): [id number] cc: [facility]; Kolby Yañez MD~ EXAMINATION: XR KNEE, LEFT CLINICAL INFORMATION: Injury. COMPARISON: None available. TECHNIQUE: AP and lateral views of the left knee. FINDINGS: Small joint effusion. Alignment is anatomic. Joint spaces are maintained. No abnormal soft tissue calcification. XR/XR knee LT 2V IMPRESSION: Small joint effusion. No acute fracture or dislocation. Dictated By: Andrew Polo MD Signed By: <Electronically signed by Andrew Polo MD in [place]> 09/23/232119 DD/ 39 TD/TT: Enterprise Solutions Architect: THUAN [place] [address] XRay Report Signed Patient: Leonard Hdz MR#: [id number] : 2000 Acct:[id number] Age/Sex: 23 / M ADM Date: 09/23/23 Loc: .ED Attending Dr: Ordering Physician: Celi Horton NP Date of Service: 09/23/23 Procedure(s): XR shoulder RT min 2V Accession Number(s): [id number] cc: [facility]; Celi Horton HEALTH INFORMATION SPECIALIST~ EXAMINATION: XR SHOULDER, RIGHT XR SCAPULA, LEFT CLINICAL INFORMATION: Fall. Pain. COMPARISON: None TECHNIQUE: AP external rotation, Grashey, scapular Y, and axillary views of the right shoulder. 2 views of the left scapula. FINDINGS: Right shoulder: The bones and soft tissues are normal. No fracture. Glenohumeral and acromioclavicular alignment is anatomic with normal joint space. No abnormal soft tissue calcifications. Left scapula: No fracture or malalignment. Osseous structures are unremarkable. Acromioclavicular and glenohumeral joints are unremarkable. XR/XR shoulder RT min 2V IMPRESSION: No acute osseous abnormalities in the right shoulder and left scapula. Dictated By: Andrew Polo MD Signed By: <Electronically signed by Andrew Pool MD in [place]> 09/23/232118 DD/ 39 TD/TT: Enterprise [employer] Architect: THUAN Tests considered The following testing was considered but not selected: Low suspicion for complex fx, dislocation or vascular injury requiring advanced imaging, Prescription Management I considered prescription management with: Pain Medication Discharge Plan Discharge Clinical Impression: Abrasion of knee, left, Abrasion of left shoulder, Abrasion of right shoulder, Abrasion of forearm, right, Abrasion of hand, right Fracture of radial head, right, closed Qualifiers: Encounter type: initial encounter Fracture alignment: nondisplaced Qualified Code(s): S52.124A - Nondisplaced fracture of head of right radius, initial encounter for closed fracture Patient Disposition: Home, Self-Care Instructions: Elbow Fracture (ED), Abrasion (ED) Additional Instructions: Take Motrin or Tylenol for any pain that you have Apply ice to the affected areas Keep the abrasions clean and dry. Sling as directed. Follow-up with orthopedic referral, call Monday morning Expect to feel sore for the next few days Follow-up with your primary care doctor for any continued symptoms Monitor for signs of infection (redness, increased swelling, drainage, fever and return for these symptoms) Prescriptions: No Action melatonin 5 mg tablet 5 mg PO BEDTIME PRN (Reason: sleep) Qty: 30 2RF cholecalciferol (vitamin D3) 50 mcg (2,000 unit) tablet 50 mcg PO DAILY Qty: 90 0RF lisdexamfetamine [Vyvanse] 50 mg capsule 50 mg PO QAM Qty: 30 0RF lidocaine [AsperFlex (lidocaine)] 4 % adhesive patch,medicated 1 patch topical BID PRN (Reason: pain) Qty: 30 0RF ibuprofen 600 mg tablet 600 mg PO Q6H PRN (Reason: pain) Qty: 20 0RF cyclobenzaprine 5 mg tablet 5 mg PO BID PRN (Reason: muscle spasm) Qty: 14 0RF acetaminophen 500 mg tablet 1,000 mg PO Q6H PRN (Reason: pain) Qty: 60 0RF Referrals: Amilcar Verduzco MD [Physician] - 1 week (Closed, nondisplaced, Right radial head fx) [facility] [Primary Care Provider] - 1 week Print Language: Filipino
[2023-09-23 20:51] VITALS: BP 130/82; PULSE 84; RESP 20; TEMP 36.6; O2SAT 98
[2023-09-23] MEDS: Bacitracin Oint 0.9 GM PACKET 5 APPL TOPICAL (21:43)
[2023-09-23 22:20] VITALS: BP 130/71; PULSE 78; RESP 18; TEMP 36.6; O2SAT 98
[2023-09-23 22:45] VITALS: BP 130/71; PULSE 78; RESP 18; TEMP 36.6; O2SAT 98
== END 2023-09-23 22:46 | disposition home or self-care (01) ==
PROVIDERS: Emergency Provider Emergency Medicine
DX: S52.124A Nondisplaced fracture of head of right radius, initial encounter for closed fracture (principal); S80.212A Abrasion, left knee, initial encounter; S40.212A Abrasion of left shoulder, initial encounter; S40.211A Abrasion of right shoulder, initial encounter; S50.811A Abrasion of right forearm, initial encounter; S60.511A Abrasion of right hand, initial encounter; V00.131A Fall from skateboard, initial encounter; Y93.51 Activity, roller skating (inline) and skateboarding; Y92.9 Unspecified place or not applicable; Y99.9 Unspecified external cause status
CPT/HCPCS: 73010; 73030; 73080; 73110; 73130; 73560; 99283; 99284

== ENCOUNTER 2023-10-06 10:43 | Outpatient (AMB) | payer OTHER, SELFPAY ==
--- NOTE | 2023-10-06 10:44 | A.OFFVIS_ITS ---
Vital Signs 10/06/23 10:48 Height 6 ft 4 in Weight 324 lb BMI 39.4 Handedness Right Intake Visit Reasons: FC - left side fc Intake Note: Leonard is a 23 year old right hand dominant male who presents today with mom for a evaluation of his right side pain. He states that he fell off of a skateboard. Patient reports he caught himself with his right upper extremity and then rolled onto the left side. He mentions having pain in his right wrist, right hand, right shoulder, left shoulder, right elbow, left knee. Currently he is feeling better than before. He states that he still having pain in his wrist and elbow with movement. Allergies No Known Allergies [No Known Allergies*] Allergy (Verified 10/06/23 10:46) HPI HPI FC - left side fc: Details: 23-year-old right hand dominant male who presents in the office today for an evaluation of right upper extremity pain. The patient presented to the ED on 09/23/23 status post a fall off his skateboard causing him to and on his right upper extremity and roll to his left side. He reported pain in the right wrist, right hand, right shoulder, left shoulder, right elbow, and left knee. X-rays were obtained and his right upper extremity was placed into a sling. ? ? While in the office today, the patient reports he is currently feeling better. He does reports pain in the right wrist and elbow with ROM.? [facility] Medical History COVID-19 vaccine administered Attention deficit hyperactivity disorder (ADHD), combined type No known health problems Surgical History No pertinent past surgical history Family History Mother No problems noted. Father Substance use disorder Other Mental health disorder Social History Household Members: Family Housing: House Alcohol intake: never Patient Tobacco Use Status: Never used Tobacco e-Cigarette/Vaping Use: Never Used Second Hand Smoke Exposure: No service: No Current occupational status: student Cognitive needs: No Hearing needs: No Vision needs: No Review of Systems Const All systems reviewed & are unremarkable except as noted in HPI and below Physical Exam Vital Signs: BMI result Body Mass Index 39.4 Const General: cooperative and no acute distress Orientation/consciousness: patient oriented x3 Resp Effort & Inspection: normal respiratory effort and able to speak in complete sentences Cardio Peripheral pulses: Peripheral pulses 2+ throughout Skin General skin exam: no rashes or lesions noted Neuro General: patient oriented x3 Extrem Other: Right upper extremity: 10 degrees of full extension. Able to perform full flex ion, pronation, and supination with pain. Tenderness to palpation over the radial head at the fracture site. ? Office Procedures Fracture Care Fracture Billing Code: Fracture Billing Code Assessment & Plan Assessment & Plan (1) Fracture of radial head, right, closed: Code(s): S52.121A - Displaced fracture of head of right radius, initial encounter for closed fracture Category: Medical Qualifiers: Encounter type: initial encounter Fracture alignment: nondisplaced Qualified Code(s): S52.124A - Nondisplaced fracture of head of right radius, initial encounter for closed fracture Plan Mr. Hdz is a 23-year-old right hand dominant male who presents in the office today for an evaluation of right upper extremity pain. The patient presented to the ED on 09/23/23 status post a fall off his skateboard causing him to and on his right upper extremity and roll to his left side. He reported pain in the right wrist, right hand, right shoulder, left shoulder, right elbow, and left knee. X-rays were obtained and his right upper extremity was placed into a sling. ? ? While in the office today, the patient reports he is currently feeling better. He does reports pain in the right wrist and elbow with ROM.? ? The patient may wear the sling for comfort. I encouraged him to come out of the sling regularly to perform ROM exercises that were demonstrated in the office today. An order was made for the patient to attend physical therapy. Follow-up will be in four weeks with repeat x-rays or sooner if needed. ? ? X-rays of the right elbow, obtained on 09/23/23, revealed: ? 1. Nondisplaced intra-articular radial head fracture with associated elbow joint effusion.? 2. No acute osseous findings at the right hand.? ? Orders: Orders OT Evaluation and Treatment Today S52.121A - Displaced fracture of head of right radius, initial encounter for closed fracture Patient Instructions: Scribed by Padma Abdi medical chief technician, for Bisi Matias PA-C on 10/06/2023 at 10:52 am, EST.? Coding Level of Care Code New Pt Level 4 (60534) Complex EM visit Add On G2211 Diagnoses Fracture of radial head, right, closed S52.124A Encounter type: initial encounter Fracture alignment: nondisplaced CPT Codes Fracture Care - Fracture Billing Code: Fracture Billing Code ([id number])
[2023-10-06 10:48] VITALS: BMI 39.4
== END 2023-10-06 10:54 | disposition home or self-care (01) ==
PROVIDERS: Visit Provider Physician Assistant
DX: S52.124A Nondisplaced fracture of head of right radius, initial encounter for closed fracture (principal)
CPT/HCPCS: 99203; G2211

== ENCOUNTER → 2023-10-06 10:43 | Outpatient (BNVA) | payer OTHER, SELFPAY | PROVIDERS: Visit Provider Physician Assistant | DX: S52.124A Nondisplaced fracture of head of right radius, initial encounter for closed fracture (principal); V00.131A Fall from skateboard, initial encounter; Y93.I9 Activity, other involving external motion; Y92.830 Public park as the place of occurrence of the external cause; Y99.9 Unspecified external cause status | CPT/HCPCS: 99202 ==

== ENCOUNTER 2023-11-03 09:09 | Outpatient (REF) | payer OTHER, SELFPAY ==
--- NOTE | ~2023-11-03 | XR_ITS ---
EXAMINATION: XR ELBOW, RIGHT CLINICAL INFORMATION: M25.529 - Pain in unspecified elbow COMPARISON: None available. TECHNIQUE: AP, lateral, and oblique views of the right elbow. FINDINGS: Joint effusion has significantly improved. Redemonstration of subtle radial head intra-articular fracture without step-off or significant displacement. Fracture line is much less distinct, indicating healing. No change in alignment of the joint. Remainder of the bones, soft tissues of the left elbow appear normal. XR/XR elbow RT min 3V IMPRESSION: 1. Healing intra-articular radial head fracture without change in anatomic alignment. Much improved joint effusion. 2. No new findings or acute findings right elbow. Electronically signed by: Andrew Norris MD 01/12/2024 12:42 PM MARIALUISA MITCHELL
== END 2023-11-03 09:10 | disposition home or self-care (01) ==
LOC: HO.HOSX 09:09
PROVIDERS: PCP Physician Assistant; Visit Provider Physician Assistant
DX: M25.521 Pain in right elbow (principal); S52.124A Nondisplaced fracture of head of right radius, initial encounter for closed fracture
CPT/HCPCS: 73080; 99212

== ENCOUNTER → 2023-11-03 09:12 | Outpatient (BNV) | payer OTHER, SELFPAY | PROVIDERS: PCP Physician Assistant; Visit Provider Radiology Diagnostic Radiology | DX: S52.121D Displaced fracture of head of right radius, subsequent encounter for closed fracture with routine healing (principal); M25.521 Pain in right elbow | CPT/HCPCS: 73080 ==

== ENCOUNTER 2023-11-03 09:33 | Outpatient (AMB) | payer OTHER, SELFPAY ==
--- NOTE | 2023-11-03 09:36 | MHC.OFFVIS ---
Intake Visit Reasons: OV - right radial head fx, DOI 09/23/23 Intake Note: Leonard is a 23 year old right hand dominant male who presents today with mom for a follow up of his right radial head fx, DOI 09/23/23. He states je is doing better, however he tends to have some discomfort when moving his arm up and down. Patient brought to my attention that he had a water blister on the lateral side of his knee that popped. Allergies No Known Allergies [No Known Allergies*] Allergy (Verified 11/03/23 09:44) HPI HPI OV - right radial head fx, DOI 09/23/23: Details: 23-year-old right hand dominant male who presents in the office today for a follow-up of a right radial head fracture which occurred on 09/23/23. I last saw the patient on 10/06/23 when he was referred to physical therapy. He was encouraged to come out of the sling regularly to perform ROM exercises that were demonstrated in the office. While in the office today, the patient reports he is doing better; however, he experiences mild discomfort when he lifts or lowers his right upper extremity. [facility] Medical History COVID-19 vaccine administered Attention deficit hyperactivity disorder (ADHD), combined type No known health problems Surgical History No pertinent past surgical history Family History Mother No problems noted. Father Substance use disorder Other Mental health disorder Social History Household Members: Family Housing: House Alcohol intake: never Patient Tobacco Use Status: Never used Tobacco e-Cigarette/Vaping Use: Never Used Second Hand Smoke Exposure: No service: No Current occupational status: student Cognitive needs: No Hearing needs: No Vision needs: No Review of Systems Const All systems reviewed & are unremarkable except as noted in HPI and below Physical Exam Const General: cooperative, healthy appearing and no acute distress Resp Effort & Inspection: normal respiratory effort and able to speak in complete sentences Cardio Rate: regular rate Peripheral pulses: Peripheral pulses 2+ throughout GI Palpation (GI): Soft to palpation Skin Lesions: no lesions Rashes: no rashes Extrem Other: Right elbow: Normal to inspection. No ecchymosis, erythema, or edema. Patient is lacking about 10 degrees of full extension. Able to perform full flexion. Able to perform full pronation and supination. No tenderness over the fracture site at the head of the radius. NVI. Assessment & Plan Assessment & Plan (1) Fracture of radial head, right, closed: Code(s): S52.121A - Displaced fracture of head of right radius, initial encounter for closed fracture Category: Medical Qualifiers: Encounter type: initial encounter Fracture alignment: nondisplaced Qualified Code(s): S52.124A - Nondisplaced fracture of head of right radius, initial encounter for closed fracture Plan Mr. Hdz is a 23-year-old right hand dominant male who presents in the office today for a follow-up of a right radial head fracture which occurred on 09/23/23. I last saw the patient on 10/06/23 when he was referred to physical therapy. He was encouraged to come out of the sling regularly to perform ROM exercises that were demonstrated in the office. While in the office today, the patient reports he is doing better; however, he experiences mild discomfort when he lifts or lowers his right upper extremity. The patient will continue to attend the remaining session of physical therapy. Follow up will be PRN, or sooner if needed. X-rays of the right elbow which were obtained while in the office today and were reviewed by me, Bisi Matias PA-C, revealed routine healing of right radial head fracture. Orders: Orders XR elbow RT min 3V Today M25.529 - Pain in unspecified elbow Patient Instructions: Scribed by Varsha Mccann medical i d sales, for Bisi Matias PA-C on 11/03/23 at 9:50 am EST. Coding Level of Care Code Global (14647) Diagnoses Fracture of radial head, right, closed S52.124A Encounter type: initial encounter Fracture alignment: nondisplaced
== END 2023-11-03 09:52 | disposition home or self-care (01) ==
PROVIDERS: Visit Provider Physician Assistant
DX: S52.124A Nondisplaced fracture of head of right radius, initial encounter for closed fracture (principal)
CPT/HCPCS: 99213

== ENCOUNTER 2023-11-09 16:01 | Outpatient (AMB) | payer OTHER, SELFPAY ==
--- NOTE | 2023-11-09 16:11 | MHC.PC.OV ---
Vital Signs 11/09/23 16:14 Height 6 ft 4 in Weight 315 lb 4 oz BMI 38.4 BP 90/50 L Blood Pressure Location Lt brachial Position Sitting Pulse 72 Pulse Source Pulse Oximeter Pulse Oximetry (%) 97 Oxygen Delivery Method Room Air Intake Visit Reasons: PREET from [place]/Physical Exam Court Collections Officer Required: No Accompanied by: Mother Allergies No Known Allergies [No Known Allergies*] Allergy (Verified 11/09/23 16:22) Medication List - Last Reconciled 11/09/23 by Ochoa Walker PA-C ibuprofen 600 mg PO Q6H PRN lisdexamfetamine (Vyvanse) 50 mg PO QAM melatonin 5 mg PO BEDTIME PRN Tobacco use date assessed: 11/09/23 Dental Screening Dental Screen Date: 11/04/22 HPI PREET from [place]/Physical Exam HPI Details Patient is a 23-year-old male here today for new patient transfer care visit. Patient has a past medical history significant for obesity, ADHD and autistic spectrum disorder. Concern-> have noted dry skin in patches of hyperpigmented skin. He does admit to being a excessively sweaty person. He also reports over last several years having intermittent muscle cramping .. ADHD: Patient does take Vyvanse on an as needed basis. At this time he is not in school or working. 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 .. Insomnia: Does use melatonin before bed which helps with sleep. [facility] Medical History (Updated 11/14/23 @ 08:08 by Ochoa Walker PA-C) Anxiety Depression COVID-19 vaccine administered Attention deficit hyperactivity disorder (ADHD), combined type No known health problems Surgical History No pertinent past surgical history Family History Mother No problems noted. Father Substance use disorder Other Mental health disorder Social History (Updated 11/09/23 @ 16:26 by Ochoa Walker PA-C) Household Members: Family Housing: House Alcohol intake: never Patient Tobacco Use Status: Never used Tobacco e-Cigarette/Vaping Use: Never Used Second Hand Smoke Exposure: No service: No Current occupational status: unemployed Cognitive needs: No Hearing needs: No Vision needs: No Questionnaire Thrive Questionnaire Date Thrive assessed: 08/24/22 Are you currently unemployed and looking for a job?: I choose not to answer this question MIR-7 AMB Questionnaire MIR-7 Date MIR - 7 assessed: 11/04/22 Source: Developed by Drs. Anthony Osuna, Penelope Edwards, John Aden and colleagues, with an educational gary from [employer]. Review of Systems Const Denies body aches, Denies chills, Denies excessive sweating, Denies fatigue, Denies fever(s) and Denies headache(s) Eyes Denies blurry vision ENT Denies dysphagia, Denies vertigo, Denies dizziness, Denies headache(s), Denies hearing loss and Denies tinnitus Card Denies chest pain, Denies chest pain with activity, Denies syncope, Denies irregular heart rhythm and Denies dyspnea Resp Denies chest congestion, Denies cough, Denies hemoptysis, Denies dyspnea and Denies wheezing GI Denies abdominal pain, Denies melena, Denies hematochezia, Denies coffee ground emesis, Denies dysphagia, Denies diarrhea, Denies nausea and Denies vomiting Denies difficulty urinating, Denies dysuria, Denies urinary frequency, Denies urinary hesitancy and Denies urinary urgency Musc Denies arthralgias, Denies limited range of motion, Denies muscle cramps and Denies muscle weakness Skin/Breast Denies rash and Denies skin ulcer Neuro Denies Abnormal speech present, Denies confusion, Denies vertigo, Denies dizziness, Denies syncope, Denies headache(s), Denies memory loss and Denies seizure-like activity Psych Denies anxiety, Denies confusion, Denies depression, Denies memory loss, Denies panic attacks and Denies paranoia Endo Denies excessive sweating, Denies fatigue, Denies flushing, Denies polydipsia and Denies polyuria Aller/Immun Denies wheezing Physical exam (Primary Care) Vital Signs: Last Vital Signs Pulse 72 11/09/23 16:14 BP 90/50 L 11/09/23 16:14 Pulse Ox 97 11/09/23 16:14 Oxygen Delivery Method Room Air 11/09/23 16:14 BMI result Body Mass Index 38.4 Tobacco/Smoking Status: Tobacco use Status Tobacco use date assessed 11/09/23 11/09/23 16:20 Patient Tobacco Use Status Never used Tobacco 11/09/23 16:26 e-Cigarette/Vaping Use Never Used 11/09/23 16:26 Thrive Assessment: Date of Thrive Assessment Date Thrive assessed 08/24/22 11/09/23 16:20 Const General: cooperative, comfortable, no acute distress, alert and awake; No confusion Orientation/consciousness: oriented to person, oriented to place, patient oriented x3 and No confusion HENMT Head: Yes normocephalic Ears: external ears normal and TM's normal bilaterally Face and sinus: No sinus tenderness Mouth: Normal oral and palatal mucosa present and tongue normal Teeth and gingiva: dentition normal and gingiva normal Throat: Yes posterior oropharynx normal, Yes tonsils normal and Yes uvula midline Eyes Conjunctivae: conjunctivae normal Sclerae: sclerae normal Pupils: Equal, round and reactive pupils present EOM: EOMs intact bilaterally Direct Ophthalmoscopy: No no photophobia Neck Neck: Yes no lymphadenopathy, No tender and Yes no JVD Thyroid: Thyroid normal Carotids: no bruits Chest Chest palpation & inspection: no tenderness Resp Effort & Inspection: normal respiratory effort, no audible wheezes, not labored and no stridor Auscultation: no crackles, no rales, no rhonchi and no wheezes Cardio Jugular venous distension: no JVD Rate: regular rate, not bradycardic and not tachycardic Rhythm: regular rhythm Bruits: no carotid bruits Peripheral pulses: Peripheral pulses 2+ throughout GI Inspection: Yes normal to inspection, No abdominal wall ecchymosis and No visible herniation Palpation (GI): Soft to palpation, nontender, no guarding, not rigid and No hepatosplenomegaly present Auscultation: normoactive bowel sounds General: Yes no CVA tenderness Back/Spine/Pelvis Back: no CVA tenderness and No back tenderness Cervical Spine: cervical ROM normal Thoracic/Lumbar Spine: thoracic and lumbar spine normal to inspection, straight leg raise negative bilaterally, No thoraco-lumbar ROM limited and No lumbar spinal tenderness Skin Lesions: no lesions Rashes: no rashes Wounds: no wounds Neuro General: oriented to person, oriented to place, patient oriented x3, CN's II-XI intact bilaterally and No confusion Cranial nerves: Yes Equal, round and reactive pupils present and Yes Normal accommodation reflex present Cognition (Neuro): normal cognition Speech: No Abnormal speech present Gait exam (Neuro): Normal gait present Motor exam (neuro): 5/5 motor strength present throughout Extrem Right upper extremity: full ROM; no cyanosis Left upper extremity: full ROM; no cyanosis Right lower extremity: no edema Left lower extremity: no edema Psych Appearance: grossly normal Mental Status: mental status grossly normal Affect: normal affect Attitude: cooperative Thought process: Normal thought process present Coding Level of Care Code Est Pt Prev Care 18-39y(87519) Diagnoses Adult general medical exam Z00.00 Primary insomnia F51.01 Insomnia type: primary Autistic disorder F84.0 Attention deficit hyperactivity disorder (ADHD), combined type F90.2 Screening for diabetes mellitus (DM) Z13.1 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 Lives at home with mother. (4) Attention deficit hyperactivity disorder (ADHD), combined type: Code(s): F90.2 - Attention-deficit hyperactivity disorder, combined type Category: Medical Plan: Patient does use Vyvanse on an as needed basis for school. Has not been in school recently as his program was close down in video game design. 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 Does have tinea versicolor which is likely related to his hyperhidrosis. Orders: Orders PT Evaluation and Treatment 11/09/23 M54.50 - Low back pain, unspecified Erythrocyte Sedimentation Rate 11/09/23 M62.838 - Other muscle spasm Creatine Kinase Total 11/09/23 M62.838 - Other muscle spasm Vitamin D 25-OH Total 11/09/23 R79.89 - Other specified abnormal findings of blood chemistry Comprehensive [place]. Panel Fast 11/09/23 Z13.1 - Encounter for screening for diabetes mellitus Complete Blood Count no Diff 11/09/23 Z13.1 - Encounter for screening for diabetes mellitus Magnesium 11/09/23 M62.838 - Other muscle spasm Medications: New glycopyrrolate 1 mg PO BID-TID 90 tabs 0RF secretions 30 days L74.510 - Primary focal hyperhidrosis, axilla Changed From melatonin 5 mg PO BEDTIME PRN 30 tabs 2RF sleep G47.00 - Insomnia, unspecified To melatonin 5 mg PO BEDTIME 90 tabs 3RF sleep 90 days G47.00 - Insomnia, unspecified
[2023-11-09 16:14] VITALS: BP 90/50; PULSE 72; O2SAT 97; BMI 38.4
== END 2023-11-09 16:43 | disposition home or self-care (01) ==
PROVIDERS: PCP Physician Assistant; Visit Provider Physician Assistant
DX: Z00.00 Encounter for general adult medical examination without abnormal findings (principal); F51.01 Primary insomnia; F84.0 Autistic disorder; F90.2 Attention-deficit hyperactivity disorder, combined type; Z13.1 Encounter for screening for diabetes mellitus; L74.510 Primary focal hyperhidrosis, axilla

== ENCOUNTER → 2023-11-09 16:01 | Outpatient (BNVA) | payer OTHER, SELFPAY | PROVIDERS: PCP Physician Assistant; Visit Provider Physician Assistant | DX: Z00.01 Encounter for general adult medical examination with abnormal findings (principal); F51.01 Primary insomnia; F84.0 Autistic disorder; F90.2 Attention-deficit hyperactivity disorder, combined type; L74.510 Primary focal hyperhidrosis, axilla | CPT/HCPCS: 99395 ==

== ENCOUNTER 2023-11-17 13:30 | Outpatient (RCR) | payer OTHER, SELFPAY ==
--- NOTE | 2024-01-11 10:54 | MHC.OT.DC ---
[address] [phone] F: [phone] Occupational Therapy Discharge Note Patient Name: Leonard Hdz Provider: Bisi Matias Diagnosis: (R)distal radial head fx Date of Surgery: Date of Evaluation: 10/17/23 Date of Discharge: Treatments to Date: 4 Cancellations to Date: No Shows to Date: Discharge Status: Visit Non-compliance Discharge Summary: Patient did not return to therapy Electronically Signed By: BROOK Tillman/Amadou, CLT Reviewed/agree with student documentation: Therapist: Please Sign and return to therapist, thank you for your referral.
== END 2024-05-23 11:13 | disposition home or self-care (01) ==
LOC: HO.OT 13:30
PROVIDERS: PCP Physician Assistant; Visit Provider Physician Assistant
DX: S52.121D Displaced fracture of head of right radius, subsequent encounter for closed fracture with routine healing (principal)
CPT/HCPCS: 97110; 97140; 97165

== ENCOUNTER 2023-11-24 12:18 | Outpatient (REF) | payer OTHER, SELFPAY ==
[2023-11-24 13:27] LABS: Hematocrit 45.7 % (42.0-52.0); Hemoglobin 14.8 g/dl (14.0-18.0); Mean Corpuscular HGB Conc 32.4 g/dl (31.0-36.0); Mean Corpuscular Hemoglobin 28.6 pg (27.0-33.0); Mean Corpuscular Volume 88.4 fL (80.0-98.0); Mean Platelet Volume 8.7 fL (9.4-12.4); Platelet Count 348 X10*3/uL (160-400); Red Blood Count 5.17 X10*6/uL (4.60-5.80); Red Cell Distribution Width 12.1 % (11.0-16.0); White Blood Count 5.4 X10*3/uL (4.8-10.8)
[2023-11-24 14:05] LABS: Erythrocyte Sedimentation Rate 5 MM/HR (0-15)
[2023-11-24 14:21] LABS: Alanine Aminotransferase 39 U/L (0-40); Albumin Level 4.5 g/dL (3.5-5.0); Alkaline Phosphatase 78 U/L (39-117); Anion Gap 11 (12-20); Aspartate Amino Transferase 28 U/L (5-37); Bilirubin Total 0.6 mg/dL (0.0-1.0); Blood Urea Nitrogen 9 mg/dL (9-16); Calcium 10.1 mg/dL (8.4-10.2); Carbon Dioxide 29 mmol/L (22-29); Chloride 104 mmol/L (96-108); Estimated Glomerular Filt Rate > 60; Glucose Fasting 87 mg/dL (60-99); Potassium 3.8 mmol/L (3.3-5.1); Sodium 140 mmol/L (135-145); Total Protein 7.7 g/dL (6.5-8.0)
[2023-11-24 14:37] LABS: Vitamin D 25-OH Total 19.3 ng/mL (>30)
== END 2023-11-24 12:19 | disposition home or self-care (01) ==
LOC: HO.LAB 12:18
PROVIDERS: PCP Physician Assistant; Visit Provider Physician Assistant
DX: Z13.1 Encounter for screening for diabetes mellitus (principal); M62.838 Other muscle spasm; R79.89 Other specified abnormal findings of blood chemistry
CPT/HCPCS: 36415; 80053; 82306; 82550; 83735; 85027; 85652

== ENCOUNTER 2024-02-21 09:51 | Outpatient (AMB) | payer OTHER, SELFPAY ==
--- NOTE | 2024-02-21 10:11 | MHC.OFFVIS ---
Vital Signs 02/21/24 10:14 Height 6 ft 4 in Weight 322 lb 15.635 oz BMI 39.3 BP 112/72 Blood Pressure Location Rt brachial Position Sitting Respiration 18 Pulse 84 Pulse Source Pulse Oximeter Pulse Oximetry (%) 98 Oxygen Delivery Method Room Air Intake Visit Reasons: Abnormal Lab Intake Note: Patient presents for abnormal lab. Allergies No Known Allergies [No Known Allergies*] Allergy (Verified 02/21/24 10:14) Medication List - Last Reconciled 02/21/24 by Ana Delgadillo MD glycopyrrolate 1 mg PO BID-TID 30 days ibuprofen 600 mg PO Q6H PRN lisdexamfetamine (Vyvanse) 50 mg PO QAM melatonin 5 mg PO BEDTIME 90 days HPI Comments Details: Patient is a 24-year-old male who presents for evaluation of elevated CK. Started having muscle pains when he was around 12 years old. Initially when he sought care he was told this was likely growing pains (had a recent growth spurt). Since then he continued to have growth spurts and these occasional muscle spasms Muscle spasms involving all over the body - jaw, hands, legs, feet, thighs, back - Mostly in the legs They would not occur every day but would occur sometimes several times over several days. No specific time of day they occur but he notes they would occur more during the day than at night. This associated with muscle twitching No associated numbness of tingling No muscle weakness No problems walking up and down stairs No problems raising hand over head No rashes No significant family history for muscle dystrophy [facility] Medical History (Updated 02/21/24 @ 10:54 by Ana Delgadillo MD) Vitamin D deficiency Anxiety Depression COVID-19 vaccine administered Attention deficit hyperactivity disorder (ADHD), combined type No known health problems Surgical History No pertinent past surgical history Family History Mother No problems noted. Father Substance use disorder Other Mental health disorder Social History Household Members: Family Housing: House Alcohol intake: never Patient Tobacco Use Status: Never used Tobacco e-Cigarette/Vaping Use: Never Used Second Hand Smoke Exposure: No service: No Current occupational status: unemployed Cognitive needs: No Hearing needs: No Vision needs: No Review of Systems Const Details: Review of Systems Constitutional: Denies fever, chills, weight loss ENT: Denies vision changes, eye pain or eye redness, dental caries, dry mouth GI: Denies nausea, vomiting, diarrhea, abdominal pain, change in BM Pulm: Denies SOB, DASILVA, hemoptysis, wheezing Cards: Denies chest pain, palpitations Skin: Denies Raynaud's, rash, nail changes, photosensitivity, ELEVATOR CONSTRUCTOR: Denies headaches, weakness, paresthesias, recurrent falls MSK: as per HPI All other systems reviewed and are unremarkable except noted above Physical Exam Vital Signs: Last Vital Signs Pulse 84 02/21/24 10:14 Resp 18 02/21/24 10:14 BP 112/72 02/21/24 10:14 Pulse Ox 98 02/21/24 10:14 Oxygen Delivery Method Room Air 02/21/24 10:14 BMI result Body Mass Index 39.3 Vital signs reviewed Physical Examination CONSTITUITIONAL Patient alert and cooperative. Well appearing and in no apparent painful distress HEENT Conjunctiva and sclera clear. ?Pupils equal round and reactive to light. ?No lymphadenopathy. ? CHEST/RESPIRATORY SYSTEM Normal respiratory effort and able to speak in complete sentences. ?Clear to auscultation bilaterally. ?No crackles, rales, rhonchi, wheezes heard. CARDIAC SYSTEM Regular rate and rhythm. ?S1 and S2 heard no murmurs. ?Radial pulses intact bilaterally MSK Hands: ?Good commercial painter strength bilaterally. No deformities noted. ?No synovitis noted to the MCPs, PIPs or DIPs. ?No tenderness to palpation of these joints. Wrists: ?Full range of motion at the wrists without pain. ?No tenderness to palpation or synovitis noted to the wrists. Elbows: Full range of motion without pain. No tenderness, weakness, swelling, increased warmth or erythema. Shoulders: Full range of motion without pain. No tenderness, weakness, swelling, increased warmth or erythema. Knees: ?Full range of motion. ?No tenderness, swelling, increased warmth or erythema.?No effusion or crepitations Right Left Shoulder abduction 5 5 Shoulder adduction 5 5 Elbow flexion 5 5 Elbow extension 5 5 Graduate Teacher Education Strength 5 5 Hip Flexion 5 5 SKIN Skin intact without rashes. Results Reviewed Results Reviewed: Laboratory Tests 11/24/23 12:31 WBC 5.4 RBC 5.17 Hgb 14.8 Hct 45.7 Plt Count 348 ESR 5 Sodium 140 Potassium 3.8 Chloride 104 Carbon Dioxide 29 BUN 9 Creatinine 1.27 AST 28 ALT 39 Alkaline Phosphatase 78 Total Creatine Kinase 672 H Total Protein 7.7 Albumin 4.5 25-OH Vitamin D Total 19.3 L Assessment & Plan Assessment & Plan (1) Elevated creatine kinase: Code(s): R74.8 - Abnormal levels of other serum enzymes Category: Medical Plan: #Elevated CK Patient is a 24-year-old male without any significant medical history who presents with a longstanding history of recurrent muscle cramps affecting a variety of limbs. Differentials for elevated CK include musculoskeletal injuries, infections, medications, inflammatory myopathies, metabolic myopathies. At this time very low suspicion for an underlying autoimmune myositis or myopathy. Given the young age that this all occurred he may have an underlying metabolic myopathy. We will send [facility] genetic testing looking for enzyme deficiencies. Patient without any significant neuropathic symptoms. We will hold off on EMG for now. Other differentials of recurrent muscle spasms include electrolyte imbalance, dehydration, overuse, thyroid disorders, neuropathy, multiple sclerosis, ALS. Encouraged hydration and we will check TSH. Low suspicion for multiple sclerosis and ALS at this time given there are no other neurologic symptoms. Plan - [facility] metabolic myopathy panel - Repeat CK - Check TSH, Aldolase - Check MSA extended panel - Encourage magnesium supplementation - Vitamin D 5000U daily - RTC prn Plan I spent 60 minutes reviewing the record and labs, taking a history, examining the patient, discussing the treatment plan and documenting in the medical record Orders: Orders MSA Panel Extended Today R74.8 - Abnormal levels of other serum enzymes Other Ref Test - Misc Today M62.838 - Other muscle spasm, R74.8 - Abnormal levels of other serum enzymes Vitamin D 25-OH (D2 and D3) Today E55.9 - Vitamin D deficiency, unspecified, R74.8 - Abnormal levels of other serum enzymes Thyroglobulin Antibodies Today E55.9 - Vitamin D deficiency, unspecified, R74.8 - Abnormal levels of other serum enzymes Thyroid Peroxidase Antibodies Today E55.9 - Vitamin D deficiency, unspecified, R74.8 - Abnormal levels of other serum enzymes Thyroid Stimulating Hormone Today E55.9 - Vitamin D deficiency, unspecified, R74.8 - Abnormal levels of other serum enzymes Free T4 (Free Thyroxine) Today E55.9 - Vitamin D deficiency, unspecified, R74.8 - Abnormal levels of other serum enzymes CK, Total+Isoenzymes, Serum Today R74.8 - Abnormal levels of other serum enzymes Aldolase Today R74.8 - Abnormal levels of other serum enzymes Comprehensive Met. Panel Today R74.8 - Abnormal levels of other serum enzymes Medications: New cholecalciferol (vitamin D3) 50 mcg PO DAILY 90 caps 3RF E55.9 - Vitamin D deficiency, unspecified Discontinued glycopyrrolate Discontinued Reason: Patient no longer taking 1 mg PO BID-TID 30 days 90 tabs 0RF secretions L74.510 - Primary focal hyperhidrosis, axilla Coding Level of Care Code New Pt Level 5 (59521) Diagnoses Elevated creatine kinase R74.8
[2024-02-21 10:14] VITALS: BP 112/72; PULSE 84; RESP 18; O2SAT 98; BMI 39.3
== END 2024-02-21 11:09 | disposition home or self-care (01) ==
PROVIDERS: PCP Physician Assistant; Visit Provider Student in an Organized Health Care Education/Training Program
DX: R74.8 Abnormal levels of other serum enzymes (principal)
CPT/HCPCS: 99205

== ENCOUNTER → 2024-02-21 09:51 | Outpatient (BNVA) | payer OTHER, SELFPAY | PROVIDERS: PCP Physician Assistant; Visit Provider Student in an Organized Health Care Education/Training Program | DX: R74.8 Abnormal levels of other serum enzymes (principal); M62.838 Other muscle spasm; E55.9 Vitamin D deficiency, unspecified; L74.510 Primary focal hyperhidrosis, axilla | CPT/HCPCS: 99202 ==

== ENCOUNTER 2024-10-14 10:54 | Outpatient (AMB) | payer OTHER, SELFPAY ==
--- NOTE | 2024-10-14 11:11 | A.OFFPC_ITS ---
Vital Signs 10/14/24 11:17 Height 6 ft 4 in Weight 322 lb BMI 39.2 BP 110/60 Blood Pressure Location Lt brachial Position Sitting Pulse 79 Pulse Source Pulse Oximeter Temp 97.1 F Temp Source Temporal Artery Scan Pulse Oximetry (%) 96 Oxygen Delivery Method Room Air Intake Visit Reasons: follow up Intake Note: Patient is here to follow up on ADHD, Low back pain. Child Abuse Worker Required: No Family Practice Nurse Practitioner: Present Accompanied by: Mother Allergies No Known Allergies (No Known Allergies*) Allergy (Verified 10/14/24 11:42) Medication List - Last Reconciled 10/14/24 by Ochoa Walker PA-C ibuprofen 600 mg PO Q6H PRN lisdexamfetamine (Vyvanse) 50 mg PO QAM melatonin 5 mg PO BEDTIME 90 days Tobacco use date assessed: 10/14/24 Dental Screening Dental Screen Date: 10/14/24 Did you have a dental visit in the last 12 months?: No Did you have a dental problem in the last 6 months where you did not have access to dental care?: No Was dental information given to patient?: No HPI follow up HPI Details Patient is a 24-year-old male here today for a follow-up visit Patient has a past medical history significant for obesity, ADHD and autistic spectrum disorder. .. Elevated creatinine kinase: He does have a chronic history of muscle spasms particularly in his legs. Has tried anti-inflammatory he is though have not been effective. Has followed up with Rheumatology due to his elevated creatinine kinase. He was supposed to have blood work evaluation though has not done at since his rheumatology evaluation. He promises to do his blood work soon. Hyperpigmentation: Continues to note dry skin in patches of hyperpigmented skin mostly over his neck and torso. He has tried Selsun blue which helped a bit though still continues to have very evident hyperpigmentation. Patient interested in seeing a basket hand weaver for evaluation and treatment. Also considering antifungal oral medications though will check labs to evaluate liver enzymes. .. ADHD: Patient does take Vyvanse on an as needed basis. At this time working part-time at a local [employer] . .. Insomnia: Does use melatonin before bed which helps with sleep. [facility] Medical History Vitamin D deficiency Anxiety Depression COVID-19 vaccine administered Attention deficit hyperactivity disorder (ADHD), combined type No known health problems Surgical History No pertinent past surgical history Family History Mother No problems noted. Father Substance use disorder Other Mental health disorder Social History Household Members: Family Housing: House Alcohol intake: never Patient Tobacco Use Status: Never used Tobacco e-Cigarette/Vaping Use: Never Used Second Hand Smoke Exposure: No service: No Current occupational status: unemployed Cognitive needs: No Hearing needs: No Vision needs: No Questionnaire PHQ-9 Over the last 2 weeks, how often have you been bothered by any of the following problems? 1. Little interest or pleasure in doing things: several days 2. Feeling down, depressed, or hopeless: not at all 3. Trouble falling or staying asleep, or sleeping too much: several days 4. Feeling tired or having little energy: several days 5. Poor appetite or overeating: not at all 6. Feeling bad about yourself - or that you are a failure or have let yourself or your family down: not at all 7. Trouble concentrating on things, such as reading the newspaper or watching television: not at all 8. Moving or speaking so slowly that other people could have noticed. Or the opposite - being so fidgety or restless that you have been moving around a lot more than usual: not at all 9. Thoughts that you would be better off or of hurting yourself in some way: not at all Total score: 3 Depression Screening Interpretation: Positive Depression Screening Done: Yes Source: Developed by Drs. Anthony Osuna, Penelope Edwards, John Aden and colleagues, with an educational gary from [employer]. Thrive Questionnaire Date Thrive assessed: 10/09/24 I am a: Patient What is your living situation today?: I have a steady place to live Within the past 12 months, did the food you bought not last and you didn't have the money to get more?: I choose not to answer this question Within the past 12 months, did you worry whether your food would run out before you got money to buy more?: I choose not to answer this question Do you have trouble paying for medicines?: I choose not to answer this question Do you have trouble getting transportation to medical appointments?: No Do you have trouble paying your heating and electricity bill?: No Do you have trouble taking care of your child, family member or friend?: I choose not to answer this question Do you have trouble with day-to-day activities such as bathing, preparing meals, shopping, managing finances, etc.?: I choose not to answer this question Are you currently unemployed and looking for a job?: I choose not to answer this question Are you interested in more education?: No Please select the resources that you would like help with: None Currently or been in a relationship where the following occur: No concerns reported THRIVE Score: 0 AUDIT C Alcohol Use Questionnaire (AUDIT-C) 1. How often do you have a drink containing alcohol?: Never Total Score: 0 MIR-7 AMB Questionnaire MIR-7 Date MIR - 7 assessed: 10/14/24 Feeling nervous, anxious, or on edge: 1 = Several days Not being able to stop or control worryin = Several days Worrying too much about different things: 1 = Several days Trouble relaxin = Several days Being so restless that it is hard to sit still: 1 = Several days Becoming easily annoyed or irritable: 1 = Several days Feeling afraid as if something awful might happen: 0 = Not at all Total MIR-7 score (0-4 normal; 5-9 mild; 10-14 moderate; 15-21 severe): 6 Source: Developed by Drs. Antohny Osuna, Pneelope Edwards, John Aden and colleagues, with an educational gary from [employer]. Review of Systems Const Denies body aches, Denies chills, Denies excessive sweating, Denies fatigue, Denies fever(s) and Denies headache(s) Eyes Denies blurry vision ENT Denies dysphagia, Denies vertigo, Denies dizziness, Denies headache(s), Denies hearing loss and Denies tinnitus Card Denies chest pain, Denies chest pain with activity, Denies syncope, Denies irregular heart rhythm and Denies dyspnea Resp Denies chest congestion, Denies cough, Denies hemoptysis, Denies dyspnea and Denies wheezing GI Denies abdominal pain, Denies melena, Denies hematochezia, Denies coffee ground emesis, Denies dysphagia, Denies diarrhea, Denies nausea and Denies vomiting Denies difficulty urinating, Denies dysuria, Denies urinary frequency, Denies urinary hesitancy and Denies urinary urgency Musc Reports back pain, Denies arthralgias, Denies limited range of motion, Reports muscle cramps and Denies muscle weakness Skin/Breast Denies rash and Denies skin ulcer Neuro Denies Abnormal speech present, Denies confusion, Denies vertigo, Denies dizziness, Denies syncope, Denies headache(s), Denies memory loss and Denies seizure-like activity Psych Denies anxiety, Denies confusion, Denies depression, Denies memory loss, Denies panic attacks and Denies paranoia Endo Denies excessive sweating, Denies fatigue, Denies flushing, Denies polydipsia and Denies polyuria Orion/Lymph Denies easy bleeding and Denies easy bruising Aller/Immun Denies wheezing Physical exam (Primary Care) Vital Signs: Last Vital Signs Temp 97.1 F 10/14/24 11:17 Pulse 79 10/14/24 11:17 BP 110/60 10/14/24 11:17 Pulse Ox 96 10/14/24 11:17 Oxygen Delivery Method Room Air 10/14/24 11:17 BMI result Body Mass Index 39.2 Tobacco/Smoking Status: Tobacco use Status Tobacco use date assessed 10/14/24 10/14/24 11:21 Patient Tobacco Use Status Never used Tobacco 10/14/24 11:12 e-Cigarette/Vaping Use Never Used 10/14/24 11:12 PHQ-9: PHQ-9 Score PHQ-9: Total score 3 10/14/24 11:41 Depression Screening Interpretation: Positive Thrive Assessment: Date of Thrive Assessment Date Thrive assessed 10/09/24 10/14/24 11:12 Currently or been in a relationship where the following occur: No concerns reported Const General: cooperative, comfortable, no acute distress, alert and awake; No confusion Nutritional Appearance: well nourished Orientation/consciousness: oriented to person, oriented to place, patient oriented x3 and No confusion HENMT Head: Yes normocephalic Ears: external ears normal and TM's normal bilaterally General nose exam: Normal nasal mucous membranes and turbinates present Face and sinus: No sinus tenderness Mouth: Normal oral and palatal mucosa present and tongue normal Teeth and gingiva: dentition normal and gingiva normal Throat: Yes posterior oropharynx normal, Yes tonsils normal and Yes uvula midline Eyes Conjunctivae: conjunctivae normal Sclerae: sclerae normal Pupils: Equal, round and reactive pupils present EOM: EOMs intact bilaterally Direct Ophthalmoscopy: No no photophobia Neck Neck: Yes no lymphadenopathy, No tender and Yes no JVD Thyroid: Thyroid normal Carotids: no bruits Chest Chest palpation & inspection: no tenderness Resp Effort & Inspection: normal respiratory effort, no audible wheezes, not labored and no stridor Auscultation: no crackles, no rales, no rhonchi and no wheezes Cardio Jugular venous distension: no JVD Rate: regular rate, not bradycardic and not tachycardic Rhythm: regular rhythm Heart sounds: no murmurs and normal S1 and S2 Bruits: no carotid bruits Peripheral pulses: Peripheral pulses 2+ throughout GI Inspection: Yes normal to inspection, No abdominal wall ecchymosis and No visible herniation Palpation (GI): Soft to palpation, nontender, no guarding, not rigid and No hepatosplenomegaly present Auscultation: normoactive bowel sounds General: Yes no CVA tenderness Back/Spine/Pelvis Back: no CVA tenderness and No back tenderness Cervical Spine: cervical ROM normal Thoracic/Lumbar Spine: thoracic and lumbar spine normal to inspection, straight leg raise negative bilaterally, No thoraco-lumbar ROM limited and No lumbar spinal tenderness Skin General skin exam: no rashes or lesions noted and dry skin Lesions: no lesions Rashes: no rashes Wounds: no wounds Neuro General: oriented to person, oriented to place, patient oriented x3, CN's II-XI intact bilaterally and No confusion Cranial nerves: Yes Equal, round and reactive pupils present and Yes Normal accommodation reflex present Cognition (Neuro): normal cognition Speech: No Abnormal speech present Gait exam (Neuro): Normal gait present Motor exam (neuro): 5/5 motor strength present throughout Extrem Right upper extremity: full ROM; no cyanosis Left upper extremity: full ROM; no cyanosis Right lower extremity: no edema Left lower extremity: no edema Psych Appearance: grossly normal Mental Status: mental status grossly normal Speech and movement: Normal speech and movement present Affect: normal affect Attitude: cooperative Thought process: Normal thought process present Coding Level of Care Code Est Pt Level 4 (18695) Diagnoses Primary insomnia F51.01 Insomnia type: primary Muscle spasms of lower extremity M62.838 Autistic disorder F84.0 Attention deficit hyperactivity disorder (ADHD), combined type F90.2 Hyperpigmentation L81.9 Elevated creatine kinase R74.8 Assessment & Plan Assessment & Plan (1) Insomnia: Code(s): G47.00 - Insomnia, unspecified Category: Medical Qualifiers: Insomnia type: primary Qualified Code(s): F51.01 - Primary insomnia Plan: As per HPI patient does use melatonin before bed with good effect on sleep. (2) Muscle spasms of lower extremity: Code(s): M62.838 - Other muscle spasm Category: Medical Plan: As per HPI patient has chronic history of muscle spasms particularly in his lower extremities since he was a child. He does have elevated creatinine kinase. Has been evaluated by Rheumatology in has been sent for laboratory testing that he has not done just yet. He is willing to try a muscle relaxer at night to see if this will help reduce his muscle spasms in his lower extremities. 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 Lives at home with mother. (4) Attention deficit hyperactivity disorder (ADHD), combined type: Code(s): F90.2 - Attention-deficit hyperactivity disorder, combined type Category: Medical Plan: Patient does use Vyvanse on an as needed basis for work. 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 (5) Hyperpigmentation: Code(s): L81.9 - Disorder of pigmentation, unspecified Category: Medical Plan: Patient continues to have hyperpigmentation and dry skin over his neck and torso. Has tried suddenly name sulfide Selsun blue topical treatment though has not been too effective. Still believe this is fungal related due to a success the sweating. He is interested in seeing a basket hand weaver for evaluation. (6) Elevated creatine kinase: Code(s): R74.8 - Abnormal levels of other serum enzymes Category: Medical Plan: As above Orders: Orders Comprehensive [place]. Panel Fast 10/14/24 Z13.1 - Encounter for screening for diabetes mellitus Vitamin D 25-OH Total 10/14/24 E55.9 - Vitamin D deficiency, unspecified Complete Blood Count no Diff 10/14/24 Z13.1 - Encounter for screening for diabetes mellitus Referrals General Surgery Referral R74.8 - Abnormal levels of other serum enzymes Dermatology Referral L81.9 - Disorder of pigmentation, unspecified Medications: New cyclobenzaprine 10 mg PO BEDTIME 30 tabs 1RF 30 days M62.838 - Other muscle spasm Refilled melatonin 5 mg PO BEDTIME 90 tabs 3RF sleep 90 days G47.00 - Insomnia, unspecified lisdexamfetamine (Vyvanse) 50 mg PO QAM 30 caps 0RF F90.2 - Attention-deficit hyperactivity disorder, combined type
[2024-10-14 11:17] VITALS: BP 110/60; PULSE 79; TEMP 36.2; O2SAT 96; BMI 39.2
== END 2024-10-14 12:01 | disposition home or self-care (01) ==
LOC: HO.HMCH 10:54
PROVIDERS: PCP Physician Assistant; Visit Provider Physician Assistant
DX: F51.01 Primary insomnia (principal); M62.838 Other muscle spasm; F84.0 Autistic disorder; F90.2 Attention-deficit hyperactivity disorder, combined type; L81.9 Disorder of pigmentation, unspecified; R74.8 Abnormal levels of other serum enzymes

== ENCOUNTER → 2024-10-14 10:54 | Outpatient (BNVA) | payer OTHER, SELFPAY | PROVIDERS: PCP Physician Assistant; Visit Provider Physician Assistant | DX: F51.01 Primary insomnia (principal); F90.9 Attention-deficit hyperactivity disorder, unspecified type; M54.50 Low back pain, unspecified; M62.838 Other muscle spasm; F84.0 Autistic disorder; F90.2 Attention-deficit hyperactivity disorder, combined type; L81.9 Disorder of pigmentation, unspecified; R74.8 Abnormal levels of other serum enzymes | CPT/HCPCS: 99212 ==

== ENCOUNTER 2024-11-13 09:38 | Outpatient (REF) | payer OTHER, SELFPAY ==
[2024-11-13 10:52] LABS: Hematocrit 44.1 % (42.0-52.0); Hemoglobin 14.2 g/dl (14.0-18.0); Mean Corpuscular HGB Conc 32.2 g/dl (31.0-36.0); Mean Corpuscular Hemoglobin 28.3 pg (27.0-33.0); Mean Corpuscular Volume 87.8 fL (80.0-98.0); NRBC Abs Auto 0.000 X10*3/uL (0.0-0.012); NRBC Pct Auto 0.0 /100WBC (0.0-0.2); Platelet Count 327 X10*3/uL (160-400); Red Blood Count 5.02 X10*6/uL (4.60-5.80); White Blood Count 5.6 X10*3/uL (4.8-10.8)
[2024-11-13 11:39] LABS: Alanine Aminotransferase 35 U/L (0-40); Albumin Level 4.6 g/dL (3.5-5.0); Alkaline Phosphatase 80 U/L (39-117); Anion Gap 10 (12-20); Aspartate Amino Transferase 34 U/L (5-37); Blood Urea Nitrogen 11 mg/dL (9-16); Calcium 9.9 mg/dL (8.4-10.2); Carbon Dioxide 27 mmol/L (22-29); Chloride 107 mmol/L (96-108); Estimated Glomerular Filt Rate > 60; Potassium 4.0 mmol/L (3.3-5.1); Sodium 140 mmol/L (135-145); Total Protein 7.2 g/dL (6.5-8.0)
== END 2024-11-13 09:39 | disposition home or self-care (01) ==
LOC: HO.LAB 09:38
PROVIDERS: Absent Provider Student in an Organized Health Care Education/Training Program; PCP Physician Assistant; Visit Provider Physician Assistant
DX: E55.9 Vitamin D deficiency, unspecified (principal); Z13.1 Encounter for screening for diabetes mellitus
CPT/HCPCS: 36415; 80053; 82306; 85027

== ENCOUNTER 2024-12-05 09:53 | Outpatient (AMB) | payer MEDICAID, SELFPAY ==
--- NOTE | 2024-12-05 09:55 | A.OFFVIS_ITS ---
Vital Signs 12/05/24 10:03 Height 6 ft 4 in Weight 333 lb 8 oz BMI 40.6 BP 126/57 L Blood Pressure Location Rt brachial Position Sitting Pulse 83 Intake Visit Reasons: HX chronic muscle spasms and elevated crea Intake Note: This patient presents for an assessment for HX chronic muscle spasms and elevated crea. Pt c/o; pt was evaluated by Ana Delgadillo MD, rheumotologist [facility] on 02/21/2024, reports he has a lot of muscle spasms bilateral lower extremities and under the throat area , Muscle spasms involving all over the body - jaw, hands, legs, feet, thighs, back - Mostly in the legs DI: 09/22/24 Elbow x-ray 11/02/2024-Elbow X-ray 09/22/2024- Shoulder X-ray 09/22/2024: Scapula x-ray : Knee X-ray 09/22/2024: Hand/ wrist x-ray Hiv Counselor Required: No Accompanied by: Mother Allergies No Known Allergies (No Known Allergies*) Allergy (Verified 12/05/24 10:09) Medication List - Last Reconciled 12/05/24 by Emory Watkins MD cholecalciferol (vitamin D3) 50 mcg PO DAILY 90 days cyclobenzaprine 10 mg PO BEDTIME 30 days ibuprofen 600 mg PO Q6H PRN lisdexamfetamine (Vyvanse) 50 mg PO QAM melatonin 5 mg PO BEDTIME 90 days HPI HPI HX chronic muscle spasms and elevated crea: Details: [age] year old male referred for possible muscle biopsy. He complains of diffuse muscle spasms for several years now. He says that all his muscles especially when both upper and lower extremities go into uncontrolled spasms frequently. He actually had been seen by the data communications software consultant in February,. He also had elevated creatine kinase at that time. As per the health outcomes liaison, there was low suspicion for an underlying autoimmune myositis or myopathy, multiple sclerosis in ALS He apparently had been seen recently by his primary care physician with persistent elevated creatinine kinase so was referred to me for muscle biopsy. He says he has the same muscle cramping and muscle spasms as before. He denies other significant complaints. [facility] Medical History Vitamin D deficiency Anxiety Depression COVID-19 vaccine administered Attention deficit hyperactivity disorder (ADHD), combined type No known health problems Surgical History No pertinent past surgical history Family History Mother No problems noted. Father Substance use disorder Other Mental health disorder Social History Household Members: Family Housing: House Alcohol intake: never Patient Tobacco Use Status: Never used Tobacco e-Cigarette/Vaping Use: Never Used Second Hand Smoke Exposure: No service: No Current occupational status: unemployed Cognitive needs: No Hearing needs: No Vision needs: No Review of Systems Const Denies chills and Denies fever(s) Card Denies chest pain, Denies dyspnea and Denies dyspnea on exertion Resp Denies cough, Denies dyspnea and Denies dyspnea on exertion GI Denies hematochezia and Denies change in bowel habits Denies hematuria and Denies difficulty urinating Musc Details: Muscle spasms diffusely Denies back pain and Denies limited range of motion Neuro Denies focal weakness and Denies convulsions Psych Denies depression and Denies mood swings Physical Exam Vital Signs: Last Vital Signs Pulse 83 12/05/24 10:03 BP 126/57 L 12/05/24 10:03 BMI result Body Mass Index 40.6 Const General: comfortable and no acute distress Orientation/consciousness: patient oriented x3 Neck Neck: Yes no lymphadenopathy Resp Auscultation: clear to auscultation bilaterally Cardio Rhythm: regular rhythm GI Palpation (GI): Soft to palpation, nontender and no guarding Neuro General: patient oriented x3 Assessment & Plan Assessment & Plan (1) Muscle spasms of lower extremity: Code(s): M62.838 - Other muscle spasm Category: Medical Plan: He was referred to me for chronic muscle spasms diffusely especially the lower extremities, as well as elevated creatinine kinase He has not seen he has data communications software consultant since February,. I told him that I would recommend seeing his data communications software consultant prior to scheduling him for muscle biopsy. I did review with him and his mother the technique of muscle biopsy under anesthesia. I explained the risks including but not limited to bleeding, infections and poor healing, as well as the benefits and alternatives If the pathologist recommends proceeding with muscle biopsy, we will schedule him for this. Coding Level of Care Code New Pt Level 3 (59335) Diagnoses Muscle spasms of lower extremity M62.838
[2024-12-05 10:03] VITALS: BP 126/57; PULSE 83; BMI 40.6
== END 2024-12-05 10:12 | disposition home or self-care (01) ==
PROVIDERS: PCP Physician Assistant; Visit Provider Surgery
DX: M62.838 Other muscle spasm (principal)
CPT/HCPCS: 99203

== ENCOUNTER → 2024-12-05 09:53 | Outpatient (BNVA) | payer OTHER, SELFPAY | PROVIDERS: PCP Physician Assistant; Visit Provider Surgery | DX: M62.838 Other muscle spasm (principal); R79.89 Other specified abnormal findings of blood chemistry | CPT/HCPCS: 99202 ==